=== PATIENT | male | born 1960 | race Caucasian/White ===

== ENCOUNTER 2024-11-30 11:59 | Outpatient (REF) | payer OTHER, SELFPAY ==
--- OUTSIDE RECORDS SUMMARY | 2024-01-02 09:50 | XMS_ITS ---
Author Name [facility] Organization [facility] Address [address] [place] [address] Care Team Providers Care Laborer Wood Preserving Plant Name Role Phone ORYL FELIX Primary Care Provider Unavailabl e Insurance Providers: All historical and current Section Date Range: From patient's date of to the date document was created. This section includes the names of all active insurance providers for the patient. Insurance Provider Type of Coverage Plan Name Start of Policy Coverage End of Policy Coverage Group Number Member ID Insurance Provider's Telephone Number Policy [employer]'s Name Patient's Relationship to Policy [employer] MEDICARE (WNR) MEDICARE (M) PART B Feb 29, 2024 PART B [id number] JAZLYN RENDON PATIENT Selected Encounter This section includes the information on record at [place] for the Encounter. Date/Time Encounter Type Encounter Description Reason Provider Source Jan 02, 2024 01:50 PM QNHP OL DIG ASSMT&MGMT 5-10 PULMONARY/CHEST ICD-10-CM Z12.2 Encntr screen for malignant neoplasm of respiratory organs [facility] Encounter Template Text not used by [place] Assessments - Encounter Diagnoses This section includes the primary and secondary diagnoses documented for the Encounter. Date/Time Primary/Secondary Diagnosis Diagnosis Name Provider Source Jan 02, 2024 01:58 PM PRIMARY Encntr screen for malignant neoplasm of respiratory organs [facility] Plan of Treatment: Future Appointments (+ 6 months) and Future Tests (+/- 45 days) The Plan of Treatment section includes future care activities for the [facility] [place] [facility] This section includes future appointments and future orders which are active, pending or scheduled. Future Appointments This section includes appointments that were scheduled to occur 6 months from the date of the Encounter, up to a maximum of 20 appointments. The data comes from all [facility] facilities. Appointment Date/Time Appointment Type Appointme nt Facility Name Feb 09, 2024 11:30 AM AMBULATORY - MEDICINE [facility] May 13, 2024 01:00 PM AMBULATORY - MEDICINE [facility] May 18, 2024 11:30 AM [facility]ORY - MEDICINE [facility] May 26, 2024 01:30 PM AMBULATORY - NONE [facility] Radiology Reports: +/- 30 days of the encounter Radiology Reports For cases when an order for radiology services may have been completed prior to the date of the Encounter, the report list includes the Radiology Reports that were completed up to 30 days before dateof the Encounter. For cases when an order for radiology services may have been completed after the date of the Encounter, the report list also includes the Radiology Reports that were completed up to30 days after date of the Encounter. The data comes from all [facility]. Date/Time Radiology Report Provider Source Jan 02, 2024 11:17 AM LDCT LUNG CANCER SCREENING: JAZLYN ALSTON [id number] -1960 Ex Date: JAN 02, 2024@11:17 Req Phys: ART GUTHRIE Loc: ZZCWM/NO/LCS ADMIN (Req'g Loc) Img Loc: NHM/CT Service: Unknown [facility] JIMI LUIS [id number] (Case [id number] COMPLETE) LDCT LUNG CANCER SCREENING (CT Detailed) CPT:32369 Reason for Study: LUNG CANCER SCREENING Clinical History: 80 TPY-Currently smoking Baseline LCS LDCT on 12/25/2022: LR 2 Index Nodule: 3 mm solid well-circumscribed left upper lobe solid pulmonary nodule, 8-80. Report Status: Verified Date Reported: JAN 02, 2024 Date Verified: JAN 02, 2024 Sap Bpc Developer E-Sig:/ES/LY No JEFF JR Report: Study: Lung cancer screening CT of the chest. Provided History: Lung cancer screening. Comparison: CT scan of the chest from December 25, 2022. Technique: 1 mm lung algorithm and 3 mm soft tissue algorithm axial reconstructions from the lung apices through the lung bases without the administration of intravenous contrast as per standard department protocol for lung cancer screening. Subsequently, sagittal and coronal reformats were generated. MIP images also provided and reviewed. Secondary computer-aided detection with post-processing from [employer] is used. The lack of intravenous contrast inherently limits the evaluation of hilar structures, vascular structures, and abnormal enhancement patterns. Lower than standard dose was utilized limiting sensitivity for fine parenchymal detail. Dose Parameters: CTDI(vol): 2.9 mGy. DLP: 98.8 mGy*cm. Findings: Lungs: Emphysema: Minimal centrilobular emphysematous changes with associated scattered parenchymal scarring is unchanged with minimal apical parenchymal nodular scarring on the left unchanged. Index Nodule: Stable 2.9 mm solid well-circumscribed left upper lobe solid pulmonary nodule, 8-78. Other Nodules: None. Lungs/airway findings: Mild dependent changes at the lung bases. No acute pulmonary process or pleural effusion is identified. The tracheobronchial tree is patent and normal. Multiple scattered bilateral punctate calcified granulomata are again seen. Heart, mediastinum and lymph nodes: The heart size is normal. No pericardial effusion identified. Normal caliber thoracic aorta. No mediastinal or hilar lymphadenopathy by size criteria. No axillary lymphadenopathy by size criteria. Normal caliber thoracic aorta. Normal caliber pulmonary arteries. Visualized coronary artery calcifications: Atherosclerotic changes of the aorta and coronary arteries. Upper abdomen: Hepatomegaly with hepatic steatosis to the visualized liver. Otherwise unremarkable. Bones and soft tissues: Normal age-related degenerative changes present. No acute bony abnormality identified. Single old healed left rib fracture. Other findings: None. Impression: No significant interval change or new abnormality, as described above. Lung-RADS Assessment: Category 2, benign appearance or behavior. Recommendation: Continue annual screening with lung cancer screening CT in 12 months. Other Significant Findings and Recommendations: None. Primary Diagnostic Code: No immediate attention required Secondary Diagnostic Codes: LUNGRADS 2: BENIGN APPEARANCE OR BEHAVIOR Primary Interpreting Staff: LY JEFF JR, Radiologist (Sap Bpc Developer) /LY VAIL JR [facility] Encounter Notes: All associated encounter notes This section contains the clinical notes associated to the Encounter. Date/Time Encounter Note(s) Provider Source Jan 02, 2024 01:58 PM PREVENTIVE MEDICINE RISK ASSESSMENT SCREENING NOTE: LOCAL TITLE: LUNG CANCER SCREENING DOCUMENTATION STANDARD TITLE: PREVENTIVE MEDICINE RISK ASSESSMENT SCREENING NO DATE OF NOTE: JAN 02, 2024@13:58 ENTRY DATE: JAN 02, 2024@13:58:35 AUTHOR: JANNA HAMPTON COSIGNER: URGENCY: STATUS: COMPLETED Dec Dear Mr. Alston: Your recent lung cancer screening CT scan found a small lung nodule. Most nodules are not lung cancer, but a few can grow into lung cancer. As mentioned in the enclosed brochure, nodules are often caused by scar tissue, a healed infection, or some other irritant found in the air we breathe. Nodules are detected in up to half of screening CT scans, but very few nodules porcelain turner to be cancer. In general, more than 95 out of 100 nodules found on lung cancer screening CT scans are not lung cancer. If there are additional findings, we will alert your primary care team. A copy if the results from your Low-Dose CT scan done on 01/02/2024 are enclosed with this letter. Your next lung cancer screening CT scan is due in 12 months, DECEMBER 2024. Our radiology team will reach out to you 3 months prior to when your exam is due to get you scheduled. You may reach our radiology team M-F between the hours of 8am and 4pm at [phone] for scheduling purposes. If you are experiencing an upper respiratory illness like a cold or the flu, please get your scan 4 weeks after your symptoms have gone away. Lung cancer screening can detect lung cancer, but it does not prevent it. Rarely, a CT scan can miss a small lung cancer. Contact your primary care provider if you develop new symptoms like worsening shortness of breath, change in a cough, or coughing up blood. If you still smoke cigarettes, we can help you quit. We understand that quitting cigarette smoking is difficult, but it is the best way to improve your health. When you want help, let your primary care provider know. You can also call 4-657-XEUE-VET ( ) or visit [employer]. Please contact us with questions or concerns about lung cancer screening. Sincerely, Janna BURT, RN, OCN Lung Cancer Screening Nurse Enclosures: brochure entitled, Small Lung Nodules: What You Need to Know /alesia/ JANNA BURT,RN,OCN LUNG CANCER SCREENING NURSE NAVIGATOR Signed: 01/02/2024 14:00 JANNA HAMPTON [facility] [place] [facility] Jan 02, 2024 01:50 PM PREVENTIVE MEDICINE RISK ASSESSMENT SCREENING NOTE: LOCAL TITLE: LUNG CANCER SCREENING DOCUMENTATION STANDARD TITLE: PREVENTIVE MEDICINE RISK ASSESSMENT SCREENING NO DATE OF NOTE: JAN 02, 2024@13:50 ENTRY DATE: JAN 02, 2024@13:50:38 AUTHOR: JANNA HAMPTON EXP COSIGNER: URGENCY: STATUS: COMPLETED NO LUNG NODULES or TRACKING OF NODULE NOT INDICATED per guidelines (e.g., clearly benign/some small nodules). Date of image: Date: January 02, 2024 LDCT Scan Results: Most recent LDCT scan shows a nodule for which tracking is not indicated per guidelines or radiology report. Comment: Lung Rads 2 Index Nodule: Stable 2.9 mm solid well-circumscribed left upper lobe solid pulmonary nodule, 8-78. Other Nodules: None. Incidental Findings: The following *INCIDENTAL FINDINGS* were noted: Emphysema: Minimal centrilobular emphysematous changes with associated scattered parenchymal scarring is unchanged with minimal apical parenchymal nodular scarring on the left unchanged. Visualized coronary artery calcifications: Atherosclerotic changes of the aorta and coronary arteries. Upper abdomen: Hepatomegaly with hepatic steatosis to the visualized liver. Otherwise unremarkable. I am notifying the Primary Care Provider for information, and for follow-up of incidental findings, if indicated. Comment: Jazlyn Lieberman NP and PACT team via second signer in CPRS Plan: Continue routine annual lung cancer screening. Patient Notification of results: Results letter sent to patient. Comment: Results letter and educational materials mailed to address on file. Patient contacted by telephone. Comment: Call placed to the . Non-urgent voicemail left. Direct call back number for LCS Coordinator provided. /alesia/ JANNA ZAMORAN,RN,OCN LUNG CANCER SCREENING NURSE NAVIGATOR Signed: 01/02/2024 13:58 Receipt Acknowledged By: 01/06/2024 19:03 /alesia/ JAZLYN LIEBERMAN NP NURSE PRACTITIONER 01/05/2024 10:18 /alesia/ BONNIE SILVA, CR REGISTERED NURSE JANNA HAMPTON PR [facility]
--- OUTSIDE RECORDS SUMMARY | 2024-05-18 07:30 | XMS_ITS | Encounter Summary ---
Author Name [facility] Organization [facility] [place] Address [address] [place] [address] Care Team Providers Care Scenic Designer Name Role Phone ORLY FELIX Primary Care Provider Unavailabl e Insurance [...] PART B Feb 29, 2024 PART B [id number] JAZLYN RENDON PATIENT Selected Encounter This section includes the information on record at [place] for the Encounter. Date/Time Encounter Type Encounter Description Reason Provider Source May 18, 2024 11:30 AM OFFICE O/P EST MOD 30 MIN PRIMARY CARE/MEDICINE ICD-10-CM C61 Malignant neoplasm of prostate JAZLYN MCCLOUD [place] Encounter Template Text not used by [place] Assessments - Encounter Diagnoses This section includes the primary and secondary diagnoses documented for the Encounter. Date/Time Primary/Secondary Diagnosis Diagnosis Name Provider Source May 18, 2024 04:58 PM PRIMARY Malignant neoplasm of prostate JAZLYN MCCLOUD [place] May 18, 2024 04:58 PM SECONDARY Chronic atrial fibrillation, unspecified JAZLYN MCCLOUD May 18, 2024 04:58 PM SECONDARY Dorsalgia, unspecified ROGERSJAZLYNELENA [place] May 18, 2024 04:58 PM SECONDARY Elevated prostate specific antigen [PSA] JAZLYN MCCLOUD [place] May 18, 2024 04:58 PM SECONDARY Hyperlipidemia, unspecified ROGERSJAZLYN No [place] May 18, 2024 04:58 PM SECONDARY Nicotine dependence, cigarettes, uncomplicated JAZLYN MCCLOUD [place] Plan of Treatment: Future Appointments (+ 6 months) and Future Tests (+/- 45 days) The Plan of Treatment section includes future care activities for the patient from all [place] treatmentfacilities. This section includes future appointments and future orders which are active, pending or scheduled. Future Appointments This section includes appointments that were scheduled to occur 6 months from the date of the Encounter, up to a maximum of 20 appointments. The data comes from all [place] treatment facilities. Appointment Date/Time Appointment Type Appointme nt Facility Name May 26, 2024 01:30 PM AMBULATORY - NONE [place] [facility] [place] [facility] Active, Pending, and Scheduled Orders This section includes a listing of several types of active, pending, and scheduled orders, including clinic medications orders, diagnostic test orders, procedure orders and consult orders; where the start date of the order is 45 days before the date of the Encounter or 45 days after the date of theEncounter. The data comes from all [place] treatment facilities. Test Date/Time Test Type Test Details Facility Name May 18, 2024 12:00 AM Laboratory - Chemi stry Order CBC BLOOD (LAV-BLOOD) [facility] May 18, 2024 12:00 AM Laboratory - Chemi stry Order LIVER FUNCTION BLOOD (SST-SERUM) [facility] May 18, 2024 12:00 AM Laboratory - Chemi stry Order BASIC METABOLIC PANEL (non-fasting) BLOOD (SST-SERUM) [facility] May 18, 2024 12:00 AM Laboratory - Chemi stry Order LIPID PANEL, NON FASTING BLOOD (SST-SERUM) [facility] May 18, 2024 12:00 AM Laboratory - Chemi stry Order HEMOGLOBIN A1C PANEL BLOOD (LAV-BLOOD) [facility] May 18, 2024 12:00 AM Laboratory - Chemi stry Order VITAMIN D (25-[place]) BLOOD (SST-SERUM) [facility] May 18, 2024 12:00 AM Laboratory - Chemi stry Order MICROALBUMIN CREATININE RATIO PANEL URINE (RANDOM) [facility] 18, 2025 12:00 AM Laboratory - Chemi stry Order PSA BLOOD (SST-SERUM) [facility] Vital Signs: All taken on the encounter date This section contains inpatient and outpatient Vital Signs collected on the date of the Encounter. Date/Time Temperature Pulse Blood Pressure Respiratory Rate SP02 Pain Height Weight Body Mass Index Source May 18, 2024 11:34 AM 96.8 88 113/73 95 220 35 [facility] Social History: Smoking Status (Most current) and Tobacco Use (All prior to encounter date) This section includes the most current, and the historical, smoking and tobacco- related health factors from the [place] facility where the Encounter took place. Current Smoking Status This section includes the most current smoking, or tobacco-related health factor, from the [place] facility where the Encounter took place. Date/Time Current Smoking Status Comment Facil [facility] May 18, 2024 11:30 AM VA-TOBACCO USE EVERY DAY CIGARET JORDYN [place] Tobacco Use History This section includes a history of the smoking, or tobacco-related health factors, that were collected on or before the date of the Encounter. The data comes from the [place] facility where the Encounter took place. Date/Time Smoking Status/Tobacco Use Comment F acility May 18, 2024 11:30 AM VA-TOBACCO SCREEN FOLLOW-UP [place] May 18, 2024 11:30 AM VA-TOBACCO USE ADVICE [place] May 18, 2024 11:30 AM VA-TOBACCO USE STUDENT MINISTRY PASTOR NO [facility] 18, 2025 11:30 AM VA-TOBACCO USE ANA RY DAY CIGARETTES [place] May 18, 2024 11:30 AM VA-TOBACCO USE MED NO [place] Oct 30, 2022 02:00 PM VA-TOBACCO USE 30 YEARS OR MORE [place] Oct 30, 2022 02:00 PM VA-TOBACCO USE ADVICE [place] Oct 30, 2022 02:00 PM VA-TOBACCO USE STUDENT MINISTRY PASTOR YES [place] Oct 30, 2022 02:00 PM VA-TOBACCO USE MED NO [place] Oct 30, 2022 02:00 PM VA-TOBACCO USE WI 30 MIN OF WAKEUP [place] Oct 30, 2022 02:00 PM VA-TOBACCO USER EVERY DAY [place] Mar 21, 2017 03:04 PM CURRENT SMOKER 2 packs daily [place] Mar 21, 2017 03:04 PM V1-PT DECLINES REF TO TOBACCO CESS [facility] Mar 21, 2017 03:04 PM V1-PT READY TO SIMONE T TOBACCO USE [place] Jun 28, 2016 11:02 AM CURRENT SMOKER [facility] Jun 28, 2016 11:02 AM V1-PT DECLINES REF TO TOBACCO CESS [facility] Jun 28, 2016 11:02 AM V1-PT DECLINES TOB ACCO CESSATION [facility] Jun 28, 2016 11:02 AM V1-PT THINKING ABO UT QUIT TOBACCO USE [place] Dec 28, 2014 09:38 AM CURRENT SMOKER [facility] Jun 21, 2013 03:36 PM CURRENT SMOKER smokes one ppd of cigaretts [place] Mar 30, 2012 10:55 AM V1-PT THINKING ABO UT QUIT TOBACCO USE [place] Oct 04, 2011 02:20 PM CURRENT SMOKER Pt smokes a pack and a half a day. [place] Oct 04, 2011 02:20 PM V1-PT DECLINES REF TO TOBACCO CESS [facility] Oct 04, 2011 02:20 PM V1-PT DECLINES TOB ACCO CESSATION [facility] Oct 04, 2011 02:20 PM V1-PT THINKING ABO UT QUIT TOBACCO USE [place] Radiology Reports: +/- 30 days of the [...] the Encounter. The data comes from all [place] treatment facilities. 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 19 images were received by the [place] National Teleradiology Program (NTP) for interpretation. FINDINGS: Proximal Abdominal Aorta (AP x transverse): 2.4 x 2.6 cm Mid Abdominal Aorta (AP x transverse): 2.1 x 2.6 cm Distal Abdominal Aorta (AP x transverse): 2.3 x 2.2 cm Right Common Iliac Artery (AP x transverse): 1.2 x 1.2 cm Left Common Iliac Artery (AP x transverse): 1.3 x 1.3 cm Impression: No sonographic evidence of abdominal aortic aneurysm. READING PHYSICIAN: Kike Hannah MD -[phone] 05/26/2024 14:01 JOB PLACEMENT OFFICER [facility] National Teleradiology Program [phone] (For Medical Practitioner Use Only) Attention Patients / Veterans: If you have questions or concerns about these test results, please contact your ordering provider or primary care team. Primary Diagnostic Code: NO ALERT REQUIRED Secondary Diagnostic Codes: ABDOMINAL AORTIC ANEURYSM NOT PRESENT Primary Interpreting Staff: RADIOLOGY,OUTSIDE SERVICE, Staff Physician / RADIOLOGY,OUTSIDE SERVICE [facility] Encounter Notes: All associated encounter notes This section contains the clinical notes associated to the Encounter. Date/Time Encounter Note(s) Provider Source May 18, 2024 04:58 PM ADDENDUM: LOCAL TITLE: Addendum STANDARD TITLE: ADDENDUM DATE OF NOTE: MAY 18, 2024@16:58:25 ENTRY DATE: MAY 18, 2024@16:58:26 AUTHOR: JAZLYN MCCLOUD EXP COSIGNER: URGENCY: STATUS: COMPLETED Team: Please request office visit note and any recent studies from the office of Dr. Melendez at [facility] cardiology. Thank you /alesia/ JAZLYN MCCLOUD NP NURSE PRACTITIONER Signed: 05/18/2024 16:59 Receipt Acknowledged By: 05/19/2024 10:58 /alesia/ [employer] SECRETARY 05/19/2024 11:09 /alesia/ KHURRAM BAIRD LPN BUNCH TRIMMER MOLD --- Original Document --- 05/18/24 NURSE PRACTITIONER OUTPATIENT NOTE: PRIMARY CARE VISIT JAZLYN Mcnair MINAL, is a 64 yo WHITE MALE Adah who presents at the [place] [facility]. TYPE OF VISIT: Face to face 64-year-old with HLD, chronic atrial fibrillation on DOAC, chronic back pain, recently diagnosed prostate cancer, nicotine dependence presented to the outpatient clinic in regular follow-up. He followed up with urology 04/08/2024 and reviewed biopsy showing grade 1 prostate CA. Plan is for MRI and PSA surveillance. He was started on finasteride 5 mg daily. Colonoscopy November 2023 showed diverticulosis and internal hemorrhoids. Also noted 3 polyps. Biopsy showed tubular adenoma x 2 with 1 hyperplastic polyp. Recommend repeat in 5 years (2028). Today he complains of worsening tinnitus. Requesting referral to audiology. Recent labs and diagnostic studies were reviewed with the . All medications were reconciled during this visit. HEALTHCARE PROVIDERS: PCP: [place] Cardiology: Dr. Melendez, [facility] Urology: Dr. Torres Audiology: [place] Social Hx: The Adah lives with his . He has smoked 1 pack/day for 30 years. He quit last year for about 8 months but resumed a few months ago. Drinks alcohol occasionally. No MJ or illicit substances. 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 No regular exercise but plans to join the gym soon given recent diagnosis of prostate cancer. HISTORY: PERIOD OF SERVICE - [employer] FROM Mar TO Nov COMBAT SERVICE INDICATED: No MEDICAL HISTORY Active Problem Back pain M54.9 06/19/2023 JIM MARX Impaired Fasting Glucose (SCT 29637 06/19/2023 JIM MARX Elevated PSA R97.20 06/19/2023 JIM MARX Lung Cancer Screening R69. 06/19/2023 JIM MARX Admits alcohol use Z72.89 06/19/2023 JIM MARX Long-term current use of anticoagul 06/19/2023 JIM MARX Lung Cancer Screening R69. 05/15/2023 JIM MARX Echocardiogram abnormal R93.1 05/15/2023 JIM MARX Hyperlipidemia (SCT [id number]) E78.5 05/15/2023 JIM MARX Atrial Fibrillation and Flutter ([place] 10/30/2022 RACHAEL YANG Closed fracture right humerus R69. 06/28/2016 MONISHA KAY Screening for malignant neoplasm of 10/30/2022 RACHAEL YANG Knee pain (SNOMED CT [id number]) 719. 02/02/2015 0 Tobacco use Z72.0 06/28/2016 MONISHA KAY VITAL SIGNS: Temperature 97 F [36.1 C] (06/19/2023 12:59) Blood Pressure 121/82 (06/19/2023 12:59) Pulse 87 (06/19/2023 12:59) Respiration 17 (06/19/2023 12:59) Pain 0 (06/19/2023 12:59) BMI BMI: 33.3 Weight 212 lb [96.16 kg] (06/19/2023 12:59) Pulse Oximetry 95% (06/19/2023 12:59) ASSISTIVE DEVICES: None REVIEW OF SYSTEMS: CONSTITUTIONAL: No fevers, chills, weight loss/gain ENT: No sore throat, sneezing, congestion, rhinorrhea, anosmia, or ageusia. CARDIOVASCULAR: No chest pain, palpitations, or increased pedal edema RESPIRATORY: No SOB, cough, sputum, wheeze. GASTROINTESTINAL: Denies abd pain, N/V/D. No melena or hematochezia. No tenesmus or constipation. GENITOURINARY: No burning micturition. No urinary frequency or urgency. No nocturia. MUSCULOSKELETAL: No myalgias or arthralgias. PSYCHIATRIC: No new anxiety or depression. No sleep disturbance. NEUROLOGIC: No headaches, dizziness, numbness or tingling in the extremities, or unilateral weakness. EXAMINATION General: Well-appearing in no obvious distress. Mental Status: Alert and oriented x4. Head: Normocephalic. Eyes: PERRLA. EOMI. Anicteric sclerae. ENT: Moist oral mucosa. Neck: Supple. No thyromegaly or LAD. No bruit. Lungs: CTA. Normal chest excursion. Eupneic respirations. CV: Heart tones S1, S2. RRR. No M/G/R. No peripheral edema GI: Abdomen is soft and nontender. No HSM or mass. : No CVA tenderness. Ext: No cyanosis or clubbing. No gross deformities. Neuro: CN II through XII grossly intact. Normal speech. Normal gait. Integument: Skin warm and dry. No concerning lesions or rashes. Psych: Normal mood and affect. Normal judgment. ALLERGIES: ========= Patient has answered NKA >> HEALTH MAINTENANCE PREVENTIVE MEDICINE GOALS Advance Directive Screen MH AD May 02 Suicide Screen Oct 30 BMI>30/>24.99 High Risk Oct 30 Homelessness/Food Insecurity Screen Oct 30 Depression Screening Oct 30 Pneumococcal PPSV23 (Pneumovax) DUE NOW Tobacco Use Screening Oct 30 Screen for Abd Aortic Aneurysm DUE NOW Influenza Immunization DUE NOW Medication Reconciliation DUE NOW Td / Tdap Immunization Oct 03 Alcohol Use Screen (AUDIT-C) Oct 30 COVID-19 Immunization DUE NOW Herpes Zoster (Shingles) Vaccine Jul 09 Sexual Orientation Oct 30 RHS Screen May 15 Eye Care At-Risk Screen DUE NOW (Optional) Whole Health Documentation DUE NOW ASSESSMENT/PLAN: Active problems - Computerized Problem List is the source for the following: Elevated PSA: Prostate cancer: Recently diagnosed 04/08/2024. He is following with Dr. Raul Redd at [place] [facility]. MRI is planned but not yet scheduled. Back pain: Chronic back pain for which he uses OTC NSAIDs for symptomatic relief. Hyperlipidemia ([facility] [id number]): Continue rosuvastatin. Discussed heart healthy diet including reduction of animal fats and increased exercise as reynoso components of overall CV health. He voiced understanding. Check lipid panel prior to next visit. Atrial Fibrillation and Flutter ([facility] [id number]): Maintained on carvedilol for ventricular rate control and apixaban for primary risk reduction. Following with [facility] cardiology, Dr. Melendez. No palpitations, exertional dyspnea, or other anginal equivalent symptoms. Nicotine dependence: He smoked 1/2 to 1 pack/day x 30 years. He stopped last year for about 8 months. I spent between 3 and 10 minutes discussing the risks of tobacco use and many benefits of tobacco cessation, including educating patient on the risk/benefits of Medically Assisted Therapies. Patient verbalized understanding of the above. FOLLOW UP: RTC Below & sooner PRN UPCOMING APPOINTMENTS: No data available 35 minutes spent in patient evaluation, data review, and patient education. All medications were reconciled during this visit. No barriers; Patient understands and agrees to current treatment plan. If pt has any questions, concerns, or changes in current health status he/she will call or come in to the [facility]. Screen for Abd Aortic Aneurysm: Order Ultrasound Medication Reconciliation: Outpatient: Has the patient been taking medications as documented in the EMLR? YES: The patient has been taking medications as documented in the EMLR. Essential Medication List for Review used to complete this medication reconciliation. INCLUDED IN THIS LIST: Alphabetical list of active outpatient prescriptions dispensed from this [facility] (local) and dispensed from another [place] or [facility]D facility (remote) as well as inpatient orders (local, pending and active), local clinic medications, locally documented non-VA medications, and local prescriptions that have or been discontinued in the past 90 days. - All changes in medications, including all non-VA/Herbal/OTC medications were entered into CPRS. - If there were any medications the patient should no longer take, they were discontinued. - The patient/caregiver was instructed to update this list, discard old lists, and take this list to the next appointment, whether with a VA or non-VA provider. Tobacco Use Follow-Up: Patient was advised to stop smoking and/or using other tobacco products. Advised patient that a combination of behavioral counseling and FDA-approved cessation medications is the most effective way to ensure their success in stopping to smoke and/or using other tobacco products. The patient was not interested in additional information about behavioral counseling and other support strategies discussed. Informed patient that medications can help with cravings and withdrawal symptoms, and they greatly increase the chances of successfully stopping your tobacco use. The patient was not interested in a prescription for tobacco cessation medications. /alesia/ JAZLYN MCCLOUD NP NURSE PRACTITIONER Signed: 05/18/2024 16:57 05/19/2024 ADDENDUM STATUS: COMPLETED THIS AUTO POLISHER SENT FAX REQUEST FOR RECORDS FROM [facility] [phone] /alesia/ [employer] SECRETARY Signed: 05/19/2024 10:57 JAZLYN MCCLOUD May 18, 2024 11:35 AM PREVENTIVE MEDICIN E NURSING NOTE: LOCAL TITLE: CLINICAL REMINDERS/NURSING STANDARD TITLE: PREVENTIVE MEDICINE NURSING NOTE DATE OF NOTE: MAY 18, 2024@11:35 ENTRY DATE: MAY 18, 2024@11:35:29 AUTHOR: ALEXEY NOONAN COSIGNER: URGENCY: STATUS: COMPLETED Advance Directive Screen MH AD: Patient does not have a completed advance directive on file at any facility, VA or outside. S/he is not interested in completing one at this time. The patient received education about Advance Directives and written notification of his/her rights. Suicide Screen: C-SSRS Screening [place] Suicide Severity Rating Scale (C-SSRS) screener 1. Over the past month, have you wished you were or wished you could go to sleep and not wake up? No 2. Over the past month, have you had any actual thoughts of killing yourself? No 3. Over the past month, have you been thinking about how you might do this? Response not required due to responses to other questions. 4. Over the past month, have you had these thoughts and had some intention of acting on them? Response not required due to responses to other questions. 5. Over the past month, have you started to work out or worked out the details of how to kill yourself? Response not required due to responses to other questions. 6. If yes, at any time in the past month did you intend to carry out this plan? Response not required due to responses to other questions. 7. In your lifetime, have you ever done anything, started to do anything, or prepared to do anything to end your life (for example, collected pills, obtained a gun, gave away valuables, went to the roof but didn't jump)? No 8. If YES, was this within the past 3 months? Response not required due to responses to other questions. BMI>30/>24.99 High Risk: Patient declines to discuss weight management. Patient declined weight discussion. Discussed revisiting at a future visit. Homelessness/Food Insecurity Screen: In the past 2 months, have you been living in stable housing that you own, rent, or stay in as part of a household? Yes - Living in stable housing. Are you worried or concerned that in the next 2 months you may NOT have stable housing that you own, rent, or stay in as part of a household? No - Not worried about housing near future The reports the following: Within the past 12 months, you worried whether your food would run out before you got money to buy more. Never true Within the past 12 months, the food you bought just didn't last and you didn't have money to get more. Never true Depression Screening: Perform PHQ-2 A PHQ-2 screen was performed. The score was 0 which is a negative screen for depression. Over the past two weeks, how often have you been bothered by the following problems? 1. Little interest or pleasure in doing things Not at all 2. Feeling down, depressed, or hopeless Not at all Pneumococcal PPSV23 (Pneumovax): The patient may have been vaccinated in the past but written documentation of vaccination is not available today. Patient instructed to obtain a written record of the prior vaccine and bring it to the next appointment. Tobacco Use Screening: The patient smokes cigarettes every day. The patient has never used other types of tobacco. Influenza Immunization: The patient has received the seasonal influenza vaccine for the current season at another location. Documented: INFLUENZA, UNSPECIFIED FORMULATION Historical Date Administered: Dec 2023 Exact date unknown Information Source: FROM PATIENT'S RECALL Td / Tdap Immunization: Prior Td vaccination The patient may have been vaccinated in the past but written documentation of vaccination is not available today. Patient instructed to obtain a written record of the prior vaccine and bring it to the next appointment. Alcohol Use Screen (AUDIT-C): Alcohol Screen: SCREEN FOR ALCOHOL (AUDIT-C) An alcohol screening test (AUDIT-C) was negative (score=3). 1. How often did you have a drink containing alcohol in the past year? Consider a drink to be a 12 ounce can or bottle of regular beer, 8 ounces of malt liquor, a 5 ounce glass of table wine, or a 1.5 ounce shot of liquor (like scotch, gin, or vodka). Monthly or less 2. How many drinks containing alcohol did you have on a typical day when you were drinking in the past year? One or two drinks 3. How often did you have six or more drinks on one occasion in the past year? Monthly COVID-19 Immunization: Refused Moderna Monovalent COVID-19 vaccine Immunization: COVID-19 (MODERNA), MRNA, LNP-S, PF, 50 MCG/0.5 ML (AGES 12+ YEARS) Refusal Reason: PATIENT DECISION Patient refuses all immunization(s) in the COVID-19 group Date Documented: 05/18/24 11:37 Herpes Zoster (Shingles) Vaccine: Prior Herpes Zoster vaccination The patient has been vaccinated in the past but written documentation of vaccination is not available today. Patient instructed to obtain a written record of the prior vaccine and bring it to the next appointment. Sexual Orientation: The patient thinks of their sexual orientation as: Straight or Heterosexual RHS Screen: RHS Screen Environmental Check Upon inquiry, the individual reports that the environment is safe to proceed. Informed Consent to Screen and Document The individual consents to proceed with screening. The individual consents to documentation of responses. PRIMARY SCREEN: In the past 12 months, how often did a current or former intimate partner (e.g., boyfriend, girlfriend, , , sexual partner): 1. Scream or curse at you Never 2. Insult or talk down to you Never 3. Threaten you with harm Never 4. Physically hurt you Never 5. Force or pressure you to have sexual contact against your will, or when you were unable to say no Never The HITS tool (items 1-4 above) is [place] copyright protected by Sammy Wallace MD, and the user has full rights to use it throughout the [place] system. PRIMARY SCREEN RESULT: The Primary Screen is NEGATIVE. The individual answered never to all forms of IPV above (i.e., answered never to all 5 items) The individual accepts education and/or resources: No EDUCATION: The individual indicated readiness to learn. Education offered during this session as noted above. The individual indicated understanding by asking relevant questions and making appropriate comments. No barriers to learning were observed or identified. Eye Care At-Risk Screen : Patient identified to be at risk for the following eye condition(s): MACULAR DEGENERATION: Macular Degeneration Risk Factors Information: Reminder Term: VA-AMD RISK FACTORS Encounter Diagnosis: 06/19/2023@13:00 Z72.0 (ICD-10-CM) Tobacco use rank: SECONDARY Prov. Narr. - Tobacco use ([facility] [id number]) Action: No Referral Ordered: Eye exam completed elsewhere by an [facility] or Embedded Developer Exam Information: Date: 2024 ? Exact date is unknown Findings/Comment VET F/U AT [facility] dont remember the dr name Location: Outside Healthcare Provider // ALEXEY NOONAN LPN Licensed Practical Nurse Signed: 05/18/2024 11:38 ALEXEY NOONAN [place] May 18, 2024 11:31 AM PRIMARY CARE NURSE PRACTITIONER OUTPATIENT NOTE: LOCAL TITLE: NURSE PRACTITIONER OUTPATIENT NOTE STANDARD TITLE: PRIMARY CARE NURSE PRACTITIONER OUTPATIENT NOTE DATE OF NOTE: MAY 18, 2024@11:31 ENTRY DATE: MAY 18, 2024@11:32 AUTHOR: JAZLYN MCCLOUD COSIGNER: URGENCY: STATUS: COMPLETED NURSE PRACTITIONER OUTPATIENT NOTE Has ADDENDA PRIMARY CARE VISIT JAZLYN COSTELLORustam, is a 64 yo WHITE MALE Adah who presents at the [place] [facility]. TYPE OF VISIT: Face to face 64-year-old Adah with HLD, chronic atrial fibrillation on DOAC, chronic back pain, recently diagnosed prostate cancer, nicotine dependence presented to the outpatient clinic in regular follow-up. He followed up with urology 04/08/2024 and reviewed biopsy showing grade 1 prostate CA. Plan is for MRI and PSA surveillance. He was started on finasteride 5 mg daily. Colonoscopy November 2023 showed diverticulosis and internal hemorrhoids. Also noted 3 polyps. Biopsy showed tubular adenoma x 2 with 1 hyperplastic polyp. Recommend repeat in 5 years (2028). Today he complains of worsening tinnitus. Requesting referral to audiology. Recent labs and diagnostic studies were reviewed with the . All medications were reconciled during this visit. HEALTHCARE PROVIDERS: PCP: [place] Cardiology: Dr. Melendez, [facility] Urology: Dr. Torres Audiology: [place] Social Hx: The lives with his . He has smoked 1 pack/day for 30 years. He quit last year for about 8 months but resumed a few months ago. Drinks alcohol occasionally. No MJ or illicit substances. 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 No regular exercise but plans to join the gym soon given recent diagnosis of prostate cancer. HISTORY: PERIOD OF SERVICE - [employer] FROM Mar TO Nov COMBAT SERVICE INDICATED: No MEDICAL HISTORY Active Problem Back pain M54.9 06/19/2023 JIM MARX Impaired Fasting Glucose (SCT 04585 06/19/2023 JIM MARX Elevated PSA R97.20 06/19/2023 JIM MARX Lung Cancer Screening R69. 06/19/2023 JIM MARX Admits alcohol use Z72.89 06/19/2023 JIM MARX Long-term current use of anticoagul 06/19/2023 JIM MARX Lung Cancer Screening R69. 05/15/2023 JIM MARX Echocardiogram abnormal R93.1 05/15/2023 JIM MARX Hyperlipidemia ([facility] 92571499) E78.5 05/15/2023 JIM MARX Atrial Fibrillation and Flutter ([place] 10/30/2022 RACHAEL YANG Closed fracture right humerus R69. 06/28/2016 MONISHA KAY Screening for malignant neoplasm of 10/30/2022 RACHAEL YANG Knee pain (SNOMED CT 68320547) 719. 02/02/2015 0 Tobacco use Z72.0 06/28/2016 MONISHA KAY VITAL SIGNS: Temperature 97 F [36.1 C] (06/19/2023 12:59) Blood Pressure 121/82 (06/19/2023 12:59) Pulse 87 (06/19/2023 12:59) Respiration 17 (06/19/2023 12:59) Pain 0 (06/19/2023 12:59) BMI BMI: 33.3 Weight 212 lb [96.16 kg] (06/19/2023 12:59) Pulse Oximetry 95% (06/19/2023 12:59) ASSISTIVE DEVICES: None REVIEW OF SYSTEMS: CONSTITUTIONAL: No fevers, chills, weight loss/gain ENT: No sore throat, sneezing, congestion, rhinorrhea, anosmia, or ageusia. CARDIOVASCULAR: No chest pain, palpitations, or increased pedal edema RESPIRATORY: No SOB, cough, sputum, wheeze. GASTROINTESTINAL: Denies abd pain, N/V/D. No melena or hematochezia. No tenesmus or constipation. GENITOURINARY: No burning micturition. No urinary frequency or urgency. No nocturia. MUSCULOSKELETAL: No myalgias or arthralgias. PSYCHIATRIC: No new anxiety or depression. No sleep disturbance. NEUROLOGIC: No headaches, dizziness, numbness or tingling in the extremities, or unilateral weakness. EXAMINATION General: Well-appearing Adah in no obvious distress. Mental Status: Alert and oriented x4. Head: Normocephalic. Eyes: PERRLA. EOMI. Anicteric sclerae. ENT: Moist oral mucosa. Neck: Supple. No thyromegaly or LAD. No bruit. Lungs: CTA. Normal chest excursion. Eupneic respirations. CV: Heart tones S1, S2. RRR. No M/G/R. No peripheral edema GI: Abdomen is soft and nontender. No HSM or mass. : No CVA tenderness. Ext: No cyanosis or clubbing. No gross deformities. Neuro: CN II through XII grossly intact. Normal speech. Normal gait. Integument: Skin warm and dry. No concerning lesions or rashes. Psych: Normal mood and affect. Normal judgment. ALLERGIES: ========= Patient has answered NKA >> HEALTH MAINTENANCE PREVENTIVE MEDICINE GOALS Advance Directive Screen MH AD May 02 Suicide Screen Oct 30 BMI>30/>24.99 High Risk Oct 30 Homelessness/Food Insecurity Screen Oct 30 Depression Screening Oct 30 Pneumococcal PPSV23 (Pneumovax) DUE NOW Tobacco Use Screening Oct 30 Screen for Abd Aortic Aneurysm DUE NOW Influenza Immunization DUE NOW Medication Reconciliation DUE NOW Td / Tdap Immunization Oct 03 Alcohol Use Screen (AUDIT-C) Oct 30 COVID-19 Immunization DUE NOW Herpes Zoster (Shingles) Vaccine Jul 09 Sexual Orientation Oct 30 RHS Screen May 15 Eye Care At-Risk Screen DUE NOW (Optional) Whole Health Documentation DUE NOW ASSESSMENT/PLAN: Active problems - Computerized Problem List is the source for the following: Elevated PSA: Prostate cancer: Recently diagnosed 04/08/2024. He is following with Dr. Raul Redd at [place] [facility]. MRI is planned but not yet scheduled. Back pain: Chronic back pain for which he uses OTC NSAIDs for symptomatic relief. Hyperlipidemia ([facility] 51162906): Continue rosuvastatin. Discussed heart healthy diet including reduction of animal fats and increased exercise as reynoso components of overall CV health. He voiced understanding. Check lipid panel prior to next visit. Atrial Fibrillation and Flutter (SCT [id number]): Maintained on carvedilol for ventricular rate control and apixaban for primary risk reduction. Following with [facility] cardiology, Dr. Melendez. No palpitations, exertional dyspnea, or other anginal equivalent symptoms. Nicotine dependence: He smoked 1/2 to 1 pack/day x 30 years. He stopped last year for about 8 months. I spent between 3 and 10 minutes discussing the risks of tobacco use and many benefits of tobacco cessation, including educating patient on the risk/benefits of Medically Assisted Therapies. Patient verbalized understanding of the above. FOLLOW UP: RTC Below & sooner PRN UPCOMING APPOINTMENTS: No data available 35 minutes spent in patient evaluation, data review, and patient education. All medications were reconciled during this visit. No barriers; Patient understands and agrees to current treatment plan. If pt has any questions, concerns, or changes in current health status he/she will call or come [facility] to the [facility]. Screen for Abd Aortic Aneurysm: Order Ultrasound Medication Reconciliation: Outpatient: Has the patient been taking medications as documented in the EMLR? YES: The patient has been taking medications as documented in the EMLR. Essential Medication List for Review used to complete this medication reconciliation. INCLUDED IN THIS LIST: Alphabetical list of active outpatient prescriptions dispensed from this [facility] (local) and dispensed from another [place] or [facility] facility (remote) as well as inpatient orders (local, pending and active), local clinic medications, locally documented non-VA medications, and local prescriptions that have or been discontinued in the past 90 days. - All changes in medications, including all non-VA/Herbal/OTC medications were entered into CPRS. - If there were any medications the patient should no longer take, they were discontinued. - The patient/caregiver was instructed to update this list, discard old lists, and take this list to the next appointment, whether with a VA or non-VA provider. Tobacco Use Follow-Up: Patient was advised to stop smoking and/or using other tobacco products. Advised patient that a combination of behavioral counseling and FDA-approved cessation medications is the most effective way to ensure their success in stopping to smoke and/or using other tobacco products. The patient was not interested in additional information about behavioral counseling and other support strategies discussed. Informed patient that medications can help with cravings and withdrawal symptoms, and they greatly increase the chances of successfully stopping your tobacco use. The patient was not interested in a prescription for tobacco cessation medications. /alesia/ JAZLYN MCCLOUD NP NURSE PRACTITIONER Signed: 05/18/2024 16:57 05/18/2024 ADDENDUM STATUS: COMPLETED Team: Please request office visit note and any recent studies from the office of Dr. Melendez at [facility] cardiology. 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 /alesia/ SHERRY TALBOT REGISTERED NURSE Signed: 05/26/2024 09:11 05/31/2024 ADDENDUM STATUS: COMPLETED No sonographic evidence of AAA on ultrasound 05/26/2024. /alesia/ JAZLYN MCCLOUD NP NURSE PRACTITIONER Signed: 05/31/2024 12:17 JAZLYN MCCLOUD
--- OUTSIDE RECORDS SUMMARY | 2024-06-14 05:39 | XMS_ITS ---
Author Name [facility] [place] Address [address] [place] [address] Care Team Providers Care Director Of Manufacturing Name Role Phone ORLY FELIX Primary Care [...] PART B Feb 29, 2024 PART B [id number] JAZLYN RENDON PATIENT Selected Encounter This section includes the information on record at [place] for the Encounter. Date/Time Encounter Type Encounter Description Reason Provider Source Jun 14, 2024 09:39 AM [facility] OL DIG ASSMT&MGMT 5-10 CLINICAL PHARMACY ICD-10-CM Z04.89 Encounter for examination and observation for oth reasons AMALIA JANE Encounter Template Text not used by [place] Assessments - Encounter Diagnoses This section includes the primary and secondary diagnoses documented for the Encounter. Date/Time Primary/Secondary Diagnosis Diagnosis Name Provider Source Jun 14, 2024 09:45 AM PRIMARY Encounter for examination and observation for oth reasons [facility]ALIA JANE [facility] Plan of Treatment: Future Appointments (+ 6 months) and Future Tests (+/- 45 days) The Plan of Treatment section includes future care activities for the patient from all [place] [facility]. This section includes future appointments and future orders which are active, pending or scheduled. Future Appointments This section includes appointments that were scheduled to occur 6 months from the date of the Encounter, up to a maximum of 20 appointments. The data comes from all [facility]. Appointment Date/Time Appointment Type Appointme nt Facility Name Nov 16, 2024 03:00 PM AMBULATORY - MEDICINE [facility] Dec 08, 2024 01:30 PM AMBULATORY - MEDICINE [facility] Active, Pending, and Scheduled Orders This section includes a listing of several types of active, pending, and scheduled orders, including clinic medications orders, diagnostic test orders, procedure orders and consult orders; where the start date of the order is 45 days before the date of the Encounter or 45 days after the date of theEncounter. The data comes from all [facility]. Test Date/Time Test Type Test Details Facility Name May 18, 2024 12:00 AM Laboratory - Chemi stry Order CBC BLOOD (LAV-BLOOD) [facility] May 18, 2024 12:00 AM Laboratory - Chemi stry Order BASIC METABOLIC PANEL (non-fasting) BLOOD (SST-SERUM) [facility] May 18, 2024 12:00 AM Laboratory - Chemi stry Order LIVER FUNCTION BLOOD (SST-SERUM) [facility] May 18, 2024 12:00 AM Laboratory - Chemi stry Order LIPID PANEL, NON FASTING BLOOD (SST-SERUM) [facility] May 18, 2024 12:00 AM Laboratory - Chemi stry Order HEMOGLOBIN A1C PANEL BLOOD (LAV-BLOOD) [facility] May 18, 2024 12:00 AM Laboratory - Chemi stry Order VITAMIN D (25-[place]) BLOOD (SST-SERUM) [facility] May 18, 2024 12:00 AM Laboratory - Chemi stry Order MICROALBUMIN CREATININE RATIO PANEL URINE (RANDOM) [facility] 18, 2025 12:00 AM Laboratory - Chemi stry Order PSA BLOOD (SST-SERUM) [facility] Radiology Reports: +/- 30 days of [...] the Encounter. The data comes from all [place] treatment facilities. Date/Time Radiology Report Provider Source May 26, 2024 01:22 PM ULTRASOUND AAA SCREENING: MINALJAZLYN [id number] -[id number] M Exm Date: MAY 26, 2024@13:22 Req Phys: JAZLYN MCCLOUD Pat Loc: SPR PACT 1 ASSOCIATE PROFESSOR OF ECONOMICS (Req'g Loc) Img Loc: ULTRASOUND Service: [facility] [place] [address] (Case 230 COMPLETE) ULTRASOUND AAA SCREENING (US Detailed) CPT:85727 Reason for Study: US Abdomen, AAA screen Clinical History: Active smoker x 30 pack years Report Status: Verified Date Reported: MAY 26, 2024 Date Verified: MAY 26, 2024 Cushion Assembler E-Sig: Report: ULTRASOUND AAA SCREENING HISTORY: US Abdomen, AAA screen COMPARISON: None TECHNIQUE: Diameters of the abdominal aorta and common iliac arteries were obtained at the local [place] facility. 19 images were received by the [place] National Teleradiology Program (NTP) for interpretation. FINDINGS: [...] aortic aneurysm. READING PHYSICIAN: Kike Hannah MD -[id number] 05/26/2024 14:01 LOOSE HAND PACK[employer] [facility] National Teleradiology Program [phone] (For Medical Practitioner Use Only) Attention Patients / Veterans: If you have questions or concerns about these test results, please contact your ordering provider or primary care team. Primary Diagnostic Code: NO ALERT REQUIRED Secondary Diagnostic Codes: ABDOMINAL AORTIC ANEURYSM NOT PRESENT Primary Interpreting Staff: RADIOLOGY,OUTSIDE SERVICE, Staff Physician / RADIOLOGY,OUTSIDE SERVICE [place] [facility] Encounter Notes: All associated encounter notes This section contains the clinical notes associated to the Encounter. Date/Time Encounter Note(s) Provider Source Jun 14, 2024 09:39 AM PHARMACY MEDICATION MGT NOTE: LOCAL TITLE: PHARMACY ANTICOAGULATION NOTE STANDARD TITLE: PHARMACY MEDICATION MGT NOTE DATE OF NOTE: JUN 14, 2024@09:39 ENTRY DATE: JUN 14, 2024@09:39:43 AUTHOR: ORLY LONG EXP COSIGNER: URGENCY: STATUS: COMPLETED PHARMACY ANTICOAGULATION NOTE Has ADDENDA ANTICOAGULATION DOAC MONITORING NOTE SUBJECTIVE: Patient identified through the DOAC population Management Tool based on the following criteria: [ ] Dosing Issue [ ] Critical Drug Interaction [ ] Cancer Treatment [ ] Active NSAID [ X ] Labs Overdue [ ] Prosthetic Valve Replacement [ ] Notable Lab Value [ ] Overdue for Refill [ ] Other: Comments: CBC and Serum creatinine recommended every 12mths for this patient on DOAC therapy OBJECTIVE: Indication for anticoagulation: [ X ] Atrial fibrilation [ ] Atrial flutter [ ] VTE (DVT or PE) [ ] Post-op DVT prophylaxis [ ] Other: Most recent lab values include the following: HGB: HGB Collection DT Specimen Test Name Result Units Ref Range 05/16/2023 08:31 BLOOD HGB 16.7 g/dL 12.8 - 17 PLT: WBC Collection DT Specimen Test Name Result Units Ref Range 05/16/2023 08:31 BLOOD WBC 9.32 K/cmm 4.50 - 11.00 Liver Function Tests No data available for: AST ALT ALKALINE PHOSPHATASE ALBUMIN BILIRUBIN, TOTAL LDH PROTEIN,TOTAL HEIGHT: 67 in [170.2 cm] (06/19/2023 12:59) WEIGHT: 220 lb [99.79 kg] (05/18/2024 11:34) BMI: BMI: 34.5 CREATININE-EGFR - NONE FOUND CRCL IBW: CrCl(est): 61.5 mL/min (Creat:1.29 05/16/23) CRCL ACT: No Creat CRCL ADJ: 61.5 mL/min (05/16/23) ASSESSMENT: overdue labs Action required? [ X ] Yes [ ] No Comments: will have [facility] CPS order updated labs. will mail letter to patient asking that they have labs completed within the next 30 days PLAN: [ ] No action required, dismiss flag [ X ] Will intervene: [ X ] Patient education via phone/letter [ ] Schedule phone/qaxz-ey-eudw follow up [ X ] Lab ordered [ ] Discontinue interacting medication [ ] Discontinue DOAC [ ] Change to alternative DOAC [ ] Change DOAC dose [ ] Notify PCP [ ] Consult cardiology/hematology [ ] Other: Time spent: 10 min /jennifer LONG CPHT Clinical Coffee Weigher Signed: 06/14/2024 09:40 Receipt Acknowledged By: 06/14/2024 09:45 /jennifer Jane PharmD, [facility] Clinical Shank Turner 06/14/2024 ADDENDUM STATUS: COMPLETED Above case reviewed as entered by [facility] Disbursing Agent. Agree with current assessment and plan of care for this patient's anticoagulation management as noted. /jennifer Jane PharmD, BCPS Clinical Shank Turner Signed: 06/14/2024 09:45 ORLY LONG [facility]
--- OUTSIDE RECORDS SUMMARY | 2024-07-15 04:53 | XMS_ITS ---
Author Name [facility] [place] Address [address] [place] [address] Care Team Providers Care Records Tech Name Role Phone ORLY FELIX Primary Care [...] PART B Feb 29, 2024 PART B [id number] JAZLYN RENDON PATIENT Selected Encounter This section includes the information on record at [place] for the Encounter. Date/Time Encounter Type Encounter Description Reason Provider Source Jul 15, 2024 08:53 AM [facility] OL DIG ASSMT&MGMT 5-10 CLINICAL PHARMACY ICD-10-CM Z04.89 Encounter for examination and observation for oth reasons MARCELINO LEWIS Encounter Template Text not used by [place] Assessments - Encounter Diagnoses This section includes the primary and secondary diagnoses documented for the Encounter. Date/Time Primary/Secondary Diagnosis Diagnosis Name Provider Source Jul 15, 2024 12:27 PM PRIMARY Encounter for examination and observation for oth reasons MARCELINO LEWIS [facility] Plan of Treatment: Future Appointments (+ 6 months) and Future Tests (+/- 45 days) The Plan of Treatment section includes future care activities for the patient from all [place] [facility]. This section includes future appointments and future orders which are active, pending or scheduled. Future Appointments This section includes appointments that were scheduled to occur 6 months from the date of the Encounter, up to a maximum of 20 appointments. The data comes from all [place] treatment facilities. Appointment Date/Time Appointment Type Appointme nt Facility Name Nov 16, 2024 03:00 PM [facility] Dec 08, 2024 01:30 PM AM[facility]ULATORY - MEDICINE [facility] Dec 31, 2024 01:00 PM AMBULATORY - NONE [facility] Active, Pending, and Scheduled Orders This section includes a listing of several types of active, pending, and scheduled orders, including clinic medications orders, diagnostic test orders, procedure orders and consult orders; where the start date of the order is 45 days before the date of the Encounter or 45 days after the date of theEncounter. The [facility]. Test Date/Time Test Type Test Details Facility Name August 24, 2024 12:26 PM Consult Order [facility]-UROLOGY [facility] [employer] [facility] [place] Lab Results: +/- 30 days of the encounter This section includes the Chemistry and Hematology Lab Results on record with [place] for the patient. Radiology Reports and Pathology Reports are provided separately, in subsequent sections. Lab Results This section contains the Chemistry/Hematology Results that were resulted 30 days before or 30 daysafter the date of the Encounter. Date/Time Source Result Type Result - Unit Interpretation Reference Range Specimen Type Comment Jul 27, 2024 10:14 AM [facility] CREATININE (eGFR 2020) SERUM Specimen Type: SERUM No comment entered. Ordering Provider: DAVON CRUZ Report Released Date/Time: Jun 14, 2024 09:45 AM Reporting Lab: [facility] [address] [facility] [address] Performing Lab: [address] [address] CREATININE, Serum 1.01 mg/dL 0.72-1.25 eGFR(CKD-EPI 2020) 82 mL/min >60 Jul 27, 2024 10:14 AM [facility] CBC BLOOD Specimen Type: BLOOD No comment entered. Ordering Provider: DAVON CRUZ Report Released Date/Time: Jun 14, 2024 09:45 AM Reporting Lab: [facility] [address] [facility] [address] Performing Lab: [facility] [address] [facility] [address] WBC 8.20 10*3/uL 4.50-11.00 RBC 4.94 10*6/uL 4.23-5.66 HGB 14.9 g/dL 12.8-17 HCT 45.5 39.2-50.4 MCV 92.1 fL 82-99 MCHC 32.7 g/dL 30.8-35.1 PLT 242 10*3/uL 140-360 MPV 9.9 fL 9.2-12.4 RDW-CV 12.6 12.0-16.0 MCH 30.2 pg 26.2-32.6 Encounter Notes: All associated encounter notes This section contains the clinical notes associated to the Encounter. Date/Time Encounter Note(s) Provider Source Jul 15, 2024 08:53 AM PHARMACY MEDICATION MGT NOTE: LOCAL TITLE: PHARMACY ANTICOAGULATION NOTE STANDARD TITLE: PHARMACY MEDICATION MGT NOTE DATE OF NOTE: JUL 15, 2024@08:53 ENTRY DATE: JUL 15, 2024@08:53:51 AUTHOR: ORLY LONG EXP COSIGNER: URGENCY: STATUS: [...] Creat CRCL ADJ: 61.5 mL/min (05/16/23) ASSESSMENT: overude labs Action required? [ X ] Yes [ ] No Comments: [facility] has already ordered updated labs. Will mail second letter asking that labs be completed within the next 30 days. PLAN: [ ] No action required, dismiss flag [ X ] Will intervene: [ X ] Patient education via phone/letter [ ] Schedule phone/zlop-ap-yilq follow up [ ] Lab ordered [ ] Discontinue interacting medication [ ] Discontinue DOAC [ ] Change to alternative DOAC [ ] Change DOAC dose [ ] Notify PCP [ ] Consult cardiology/hematology [ ] Other: Time spent: 10 min /jennifer LONG CPHT Clinical Metal Dresser Signed: 07/15/2024 08:54 Receipt Acknowledged By: 07/15/2024 12:28 /jennifer Lewis PharmD, [facility] Clinical Ui Application Developer 07/15/2024 ADDENDUM STATUS: COMPLETED Reviewed blow pit helper note; agree w/ A/P as documented. /jennifer Lewis PharmD, M[facility] Clinical Ui Application Developer Signed: 07/15/2024 12:28 ORLY LONG [facility]
--- OUTSIDE RECORDS SUMMARY | 2024-07-28 03:42 | XMS_ITS | Encounter Summary ---
Author Name [facility] [place] Organization [facility] [place] [place] Address [address] [place] [id number] Care Team Providers Care Back Padder Name Role Phone ORLY FELIX Primary Care [...] PART B Feb 29, 2024 PART B [id number] JAZLYN RENDON PATIENT Selected Encounter This section includes the information on record at [place] for the Encounter. 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 Radiology Reports and Pathology Reports are provided separately, in subsequent sections. Lab Results This section contains the Chemistry/Hematology Results that were resulted 30 days before or 30 daysafter the date of the Encounter. Date/Time Source Result Type Result - Unit Interpretation Reference Range Specimen Type Comment Jul 27, 2024 10:14 AM [facility] CREATININE (eGFR 2020) SERUM Specimen Type: SERUM No comment entered. Ordering Provider: DAVON CRUZ Report Released Date/Time: Jun 14, 2024 09:45 AM Reporting Lab: [facility] [place] [address] [address] Performing Lab: [facility] [place] [address] [address] CREATININE, Serum 1.01 mg/dL 0.72-1.25 eGFR(CKD-EPI 2020) 82 mL/min >60 Jul 27, 2024 10:14 AM [facility] [place] [facility] CBC BLOOD Specimen Type: BLOOD No comment entered. Ordering Provider: DAVON CRUZ Report Released Date/Time: Jun 14, 2024 09:45 AM Reporting Lab: [facility] [place] [address] [address] Performing Lab: [facility] [place] [facility] [address] [facility] [address] WBC 8.20 10*3/uL 4.50-11.00 RBC 4.94 10*6/uL 4.23-5.66 HGB 14.9 g/dL 12.8-17 HCT 45.5 39.2-50.4 MCV 92.1 fL 82-99 MCHC 32.7 g/dL 30.8-35.1 PLT 242 10*3/uL 140-360 MPV 9.9 fL 9.2-12.4 RDW-CV 12.6 12.0-16.0 MCH 30.2 pg 26.2-32.6 Encounter Notes: All associated encounter notes This section contains the clinical notes associated to the Encounter. Date/Time Encounter Note(s) Provider Source Jul 28, 2024 07:42 AM LETTERS: LOCAL TITLE: PATIENT LETTER (T) STANDARD TITLE: LETTERS DATE OF NOTE: JUL 28, 2024@07:42 ENTRY DATE: JUL 28, 2024@07:42:56 AUTHOR: DAVON CRUZ COSIGNER: URGENCY: STATUS: COMPLETED DEPARTMENT OF [facility] Toll Free Number Primary Care Telephone Assistance can be reached at extension [phone] [facility] scheduling can be reached at extension [phone] [facility] scheduling can be reached at ext [phone] [facility]N [facility] [address] [place] [address], [id number] Dear [place], Thank you for coming in to have your labs drawn. A complete blood count was checked and remains stable. Your kidney function was also checked to ensure your dose of ELIQUIS (APIXABAN) is appropriate. Your kidney function remains stable and no dose adjustment is needed. Please find your lab results below, compared to your previous results. BLOOD Jul 27 May 16 Oct 30 Reference 2024 2023 2022 10:14 08:31 14:44 Units Ranges WBC 8.20 9.32 10.21 10*3/uL 4.5 - 11 RBC 4.94 5.51 5.11 10*6/uL 4.23 - 5.66 HGB 14.9 16.7 15.2 g/dL 12.8 - 17 HCT 45.5 50.1 47.2 % 39.2 - 50.4 MCV 92.1 90.9 92.4 fl 82 - 99 MCH 30.2 30.3 29.7 pg 26.2 - 32.6 MCHC 32.7 33.3 32.2 g/dL 30.8 - 35.1 RDW 12.6 12.2 12.8 % 12 - 16 PLT 242 222 270 10*3/uL 140 - 360 SERUM Jul 27 May 16 Oct 30 Reference 2024 2023 2022 10:14 08:31 14:44 Units Ranges CREATININE 1.01 1.29 1.28 mg/dL 0.72 - 1.25 If you have questions, please call the [place] [facility] at the following number(s): [phone]. [phone] Sincerely, Your Primary Care Team [facility] [address] [facility] [address] [place] [address] [place] [address] [phone] [facility] [address] [place] [address] [place] [address] [phone] [facility] [address] [facility] [place] [phone] [place] [address] [phone] DAVON CRUZ CB[facility]
--- OUTSIDE RECORDS SUMMARY | 2024-11-16 11:00 | XMS_ITS | Encounter Summary ---
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 Date/Time Encounter Type Encounter Description Reason Pro vider Source Nov 16, 2024 03:00 PM Outpatient Encounter PRIMARY CARE/MEDICINE [facility] Encounter Template Text not used by CT Plan of Treatment: Future Appointments (+ 6 months) and Future Tests (+/- 45 days) The Plan of Treatment section includes future care activities for the patient from all CT treatmentfacilities. This section includes future appointments and future orders which are active, pending or scheduled. Future Appointments This section includes appointments that were scheduled to occur 6 months from the date of the Encounter, up to a maximum of 20 appointments. The data comes from all CT treatment facilities. Appointment Date/Time Appointment Type Appointme nt Facility Name Dec 08, 2024 01:30 PM AMBULATORY - MEDICINE [facility] Dec 31, 2024 01:00 PM AMBULATORY - NONE [facility] Active, Pending, and Scheduled Orders This section includes a listing of several types of active, pending, and scheduled orders, including clinic medications orders, diagnostic test orders, procedure orders and consult orders; where the start date of the order is 45 days before the date of the Encounter or 45 days after the date of theEncounter. The data comes from all CT treatment facilities. Test Date/Time Test Type Test Details Facility Name Dec 31, 2024 12:00 AM Imaging - CT Scan Order LDCT LUNG CANCER SCREENING [facility] Social History: Smoking Status (Most current) and Tobacco Use (All prior to encounter date) This section includes the most current, and the historical, smoking and tobacco- related health factors from the [place] facility where the Encounter took place. Current Smoking Status This section includes the most current smoking, or tobacco-related health factor, from the [place] facility where the Encounter took place. Date/Time Current Smoking Status Comment Facil marcy May 18, 2024 11:30 AM VA-TOBACCO USE EVERY DAY CIGARET JORDYN [place] Tobacco Use History This section includes a history of the smoking, or tobacco-related health factors, that were collected on or before the date of the Encounter. The data comes from the [place] facility where the Encounter took place. 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 [place] Oct 30, 2022 02:00 PM VA-TOBACCO USE MED NO [place] Oct 30, 2022 02:00 PM VA-TOBACCO USE WI 30 MIN OF WAKEUP [place] Oct 30, 2022 02:00 PM VA-TOBACCO USER EVERY DAY [place] Mar 21, 2017 03:04 PM CURRENT SMOKER 2 packs daily [place] Mar 21, 2017 03:04 PM V1-PT DECLINES REF TO TOBACCO CESS [facility] Mar 21, 2017 03:04 PM V1-PT READY TO SIMONE T TOBACCO USE [place] Jun 28, 2016 11:02 AM CURRENT SMOKER [facility] Jun 28, 2016 11:02 AM V1-PT DECLINES REF TO TOBACCO CESS [facility] Jun 28, 2016 11:02 AM V1-PT DECLINES TOB ACCO CESSATION [facility] Jun 28, 2016 11:02 AM V1-PT THINKING ABO UT QUIT TOBACCO USE [place] Dec 28, 2014 09:38 AM CURRENT SMOKER [facility] Jun 21, 2013 03:36 PM CURRENT SMOKER smokes one ppd of cigaretts [place] Mar 30, 2012 10:55 AM V1-PT THINKING ABO UT QUIT TOBACCO USE [place] Oct 04, 2011 02:20 PM CURRENT SMOKER Pt smokes a pack and a half a day. [place] Oct 04, 2011 02:20 PM V1-PT DECLINES REF TO TOBACCO CESS [facility] Oct 04, 2011 02:20 PM V1-PT DECLINES TOB ACCO CESSATION [facility] Oct 04, 2011 02:20 PM V1-PT THINKING ABO UT QUIT TOBACCO USE [place]
--- OUTSIDE RECORDS SUMMARY | 2024-11-30 08:19 | XMS_ITS | Continuity of Care Document ---
Author Name [facility] Organization [facility] Care Team Providers Care Dry Sander Name Role Phone [facility] Unavailable Unavailable Problems Combined list of problems from Department of Defense and Veterans Affairs facilities. It does not include entries that were removed or entered in error. Problem Status Onset Date Problem Type Date of Resolution Comments Source Admits alcohol use Active Condition [place] Back pain Active Condition [place] Carcinoma of prostate Active Condition [facility] [place] [facility] Chronic atrial fibrillation Active Condition May 18, 2024 Entered By: JAZLYN MCCLOUD Comment: Atrial fib/flutter [facility] [place] [facility] Closed fracture right humerus Active Condition Jun 28, 2016 Entered By: MONISHA KAY Comment: 3 part fracture surgical neck Right HumerusOct 2014 Entered By: JUAN MONTES Comment: see X-Ray and CT Reports done DEC 13; refer Ortho [facility]Nov 2014 Entered By: JUAN MONTES Comment: See Notes, Ortho [facility] dt and FEB 12; Non-Op Case [place] Echocardiogram abnormal Active Condition May 15, 2023 Entered By: JIM MARX Comment: 12/21 Global Hypokinesis EF %45-50, Dilated RV [place] Elevated PSA Active Condition [facility] Hyperlipidemia (SCT 34931661) Active Condition [facility] Impaired Fasting Glucose (SCT 254844522) Active Condition [place] Knee pain (SNOMED CT 28404802) Active Condition [place] Long-term current use of anticoagulant (SNOMED CT 776787020) Active Condition [facility] [place] [facility] Lung Cancer Screening Active Condition May 15, 2023 Entered By: JIM MARX Comment: Chest Ct Scan: 12/21 [place] Lung Cancer Screening Active Condition Jun 19, 2023 Entered By: JIM MARX Comment: CT Scan Chest 12/21 [place] Nicotine dependence Active Condition [facility] [place] [facility] Screening for malignant neoplasm of colon done (SNOMED CT 998027552089930) Active Condition Jun 28 7 Entered By: MONISHA KAY Comment: Colonoscopy 01/20/12. F/U 10 years (2021)May 18, 2024 Entered By: JAZLYN MCCLOUD Comment: [place] 11/2023: Polyp x 3. Tubular adenoma x 2, hyperplastic polyp x 1. Repeat 2028. [place] Mixed hyperlipidemia Inactive Condition 05/15/2023 Jun 28, 2016 Entered By: MONISHA KAY Comment: 05/2016: TC 264 - Trig 197 - HDL 29 - LDL 196 [facility] Diagnosis: ICD-10-CM Z04.89 Encounter for examination and observation for oth reasons Active Diagnosis [facility] Diagnosis: ICD-10-CM C61 Malignant neoplasm of prostate Active Diagnosis [place] Diagnosis: ICD-10-CM Z12.2 Encntr screen for malignant neoplasm of respiratory organs Active Diagnosis [facility] Diagnosis: ICD-10-CM M54.9 Dorsalgia, unspecified Active Diagnosis [place] Diagnosis: ICD-10-CM Z79.01 half-way (current) use of anticoagulants Active Diagnosis [facility] (631GE) Medications Combined list of outpatient medications from Department of Defense and Veterans Affairs facilities.Medications provided include 1) outpatient medications from the last 15 months, and 2) patient-reported medications. Medication Details Route Status Patient Instructions Prescription Expires Prescription Number Last Dispense Date Ordering Provider Order Date Order Qty Source APIXABAN 5MG TAB TAKE ONE TABLET BY MOUTH EVERY 12 HOURS FOR ATRIAL FIBRILAT ION ORAL ACTIVE 09/29/2025 [id number] 5 Ashvin MCCLOUDD A 2024 180 [place] APIXABAN 5MG TAB TAKE ONE TABLET BY MOUTH EVERY 12 HOURS FOR ATRIAL FIBRILAT ION ORAL DISCONT INUED 07/19/2024 [id number] 5 Ashvin MCCLOUD A 2023 60 [place] CAMPHOR/MEN THOL/METHYL SALICYLATE PATCH APPLY 1 PATCH TOPICALL Y TWICE DAILY FOR PAIN (REMOVE PATCH AFTER 8 TO 12 HOURS) TOPICA L ACTIVE 11/17/2025 [id number] JULY,CRISELDA SINGH P 2024 60 [place] CARVEDILOL 3.125MG TAB TAKE ONE TABLET BY MOUTH TWICE DAILY ORAL 10/29/2024 [id number] Jennifer WALL A 2023 60 [place] FINASTERIDE 5MG TAB TAKE ONE TABLET BY MOUTH ONCE DAILY FOR ENLARGED PROSTATE ORAL ACTIVE 11/17/2025 [id number] 5 JULY,CRISELDA RLY P 2024 90 [place] FINASTERIDE 5MG TAB TAKE ONE TABLET BY MOUTH ONCE DAILY FOR ENLARGED PROSTATE ORAL DISCONT INUED 04/09/2025 [id number] BRITANY QUESADA S 2024 60 [facility] [place] [facility] LISINOPRIL 5MG TAB TAKE ONE TABLET BY MOUTH ONCE DAILY TO CONTROL BLOOD PRESSURE ORAL ACTIVE 06/22/2025 [id number] 5 Ashvin MCCLOUD A 2024 90 [place] LISINOPRIL 5MG TAB TAKE ONE TABLET BY MOUTH ONCE DAILY TO CONTROL BLOOD PRESSURE ORAL DISCONT INUED 10/29/2024 [id number] Jennifer WALL A 2023 90 [facility] IELD ROSUVASTATI N CA 20MG TAB TAKE ONE TABLET BY MOUTH ONCE DAILY FOR CHOLESTE ROL ORAL ACTIVE 09/29/2025 [id number] 5 Ashvin MCCLOUD A 2024 90 [facility] IELD ROSUVASTATI N [place] 20MG TAB TAKE ONE TABLET BY MOUTH ONCE DAILY FOR CHOLESTE ROL ORAL DISCONT INUED 09/24/2024 [id number] Jennifer WALL A 2023 90 [facility] IELD ROSUVASTATI N [place] 20MG TAB TAKE ONE-HALF TABLET BY MOUTH AT BEDTIME FOR CHOLESTE ROL ORAL DISCONT INUED 07/19/2024 [id number] 4 Ashvin MCCLOUD A 2023 45 [place] Immunizations Combined list of available immunizations from the Department of Defense and Veterans Affairs facilities. Immunization Series Date Given Administered By Site Reaction Lot Number CVX Code Drug Unit Aide Tech Status Comments Source INFLUENZA, UNSPECIFIED FORMULATION 2023 88 complet ed HISTORICA L INFORMATI ON - FROM PATIENT'S RECALL, [facility] COVID-19 (MODERNA), MRNA, LNP-S, PF, 50 MCG/0.5 ML (AGES 12+ YEARS) 1 2023 NANCY KAY RIGHT ARM [id number] complet ed [facility], [facility] IELD INFLUENZA, INJECTABLE, QUADRIVALENT, PRESERVATIVE FREE 2023 BRIE,MULUGETA E R RIGHT DELTO ID [id number] A 150 complet ed ADMINISTE RED AT [facility] [facility] ZOSTER RECOMBINANT 2023 BRIE,MULUGETA E R RIGHT DELTO ID [id number] 187 complet ed ADMINISTE [facility] AT [facility] COVID-19 (PFIZER), MRNA, LNP-S, PF, 30 MCG/0.3 ML DOSE 2 2020 208 complet ed PFR; [id number]; 1 [facility] [facility] COVID-19 (PFIZER), MRNA, LNP-S, PF, 30 MCG/0.3 ML DOSE 1 2020 208 complet ed PFR; [id number]; 1 [facility] [facility] FLU,3 YRS (HISTORICAL) 2016 88 complet ed Site: Left Deltoid [place] PNEUMOCOCCAL CONJUGATE PCV 13 2016 133 complet ed [place] FLU,3 YRS (HISTORICAL) 2014 88 complet ed Site: Left Deltoid [place] FLU,3 YRS (HISTORICAL) 2011 88 complet ed Site: Left Deltoid [place] DTAP, UNSPECIFIED FORMULATION 2011 KRYSTEN SOTOMAYOR 107 complet ed [place] PNEUMOCOCCAL, UNSPECIFIED FORMULATION 2011 KRYSTEN SOTOMAYOR 109 complet ed [place] FLU,3 YRS (HISTORICAL) 2010 88 complet ed [facility] [employer] [facility] Results Combined list of recent chemistry, hematology and other laboratory results from Department of Defense and Veterans Affairs, ranging from 15 months to all on record, depending upon the facility. Order Name Results Value Reference Range Date Interpretation Specimen Comments Source LIPID PANEL, NON FASTING CHOLESTEROL [MASS/VOLUM E] IN SERUM OR PLASMA 139 mg/dL 09/27 Specimen Type: SERUM No comment entered. Ordering Provider: JAY MCCLOUD A Report Released Date/Time: Sep 21, 2024 01:48 PM Reporting Lab: [facility] [place] [address] [address] Performing Lab: [facility] [address] [place] LIPID PANEL, NON FASTING TRIGLYCERID E [MASS/VOLUM E] IN SERUM OR PLASMA 117 mg/dL 0 - 150 09/27 Specimen Type: SERUM No comment entered. Ordering Provider: JAY MCCLOUD A Report Released Date/Time: Sep 21, 2024 01:48 PM Reporting Lab: [facility] [place] [address] [address] Performing Lab: [facility] [address] [address] [place] LIPID PANEL, NON FASTING CHOLESTEROL IN LDL [MASS/VOLUM E] IN SERUM OR PLASMA BY CALCULATION 89 mg/dL 0 - 129 09/27 Specimen Type: SERUM No comment entered. Ordering Provider: JAY MCCLOUD A Report Released Date/Time: Sep 21, 2024 01:48 PM Reporting Lab: [facility] [place] [address] [address] Performing Lab: [facility]ENTER[facility] [address] [address] [place] LIPID PANEL, NON FASTING CHOLESTEROL .TOTAL/CHOL ESTEROL IN HDL [MASS RATIO] IN SERUM OR PLASMA 5.1 09/27 Specimen Type: SERUM No comment entered. Ordering Provider: JAY MCCLOUD A Report Released Date/Time: Sep 21, 2024 01:48 PM Reporting Lab: [facility]ENTER[facility] [address] Performing Lab: [facility] [address] [facility] [address] [place] LIPID PANEL, NON FASTING CHOLESTEROL IN HDL [MASS/VOLUM E] IN SERUM OR PLASMA 27 mg/dL 40 09/27 L Specimen Type: SERUM No comment entered. Ordering Provider: JAY MCCLOUD A Report Released Date/Time: Sep 21, 2024 01:48 PM Reporting Lab: [facility] [address] [facility] [address] Performing Lab: [facility] [address] [facility] [address] [place] BASIC METABOLIC PANEL (non-fast ing) UREA NITROGEN [MASS/VOLUM E] IN SERUM OR PLASMA 21 mg/dL 8 - 26 09/27 Specimen Type: SERUM No comment entered. Ordering Provider: JAY MCCLOUD A Report Released Date/Time: Sep 21, 2024 01:48 PM Reporting Lab: [address] [address] Performing Lab: [address] [address] [place] BASIC METABOLIC PANEL (non-fast ing) GLUCOSE [MASS/VOLUM E] IN SERUM OR PLASMA 84 mg/dL 65 - 100 09/27 Specimen Type: SERUM No comment entered. Ordering Provider: JAY MCCLOUD A Report Released Date/Time: Sep 21, 2024 01:48 PM Reporting Lab: [address] [address] Performing Lab: [address] [address] [place] BASIC METABOLIC PANEL (non-fast ing) SODIUM [MOLES/VOLU ME] IN SERUM OR PLASMA 142 mmol/L 136 - 145 09/27 Specimen Type: SERUM No comment entered. Ordering Provider: JAY MCCLOUD A Report Released Date/Time: Sep 21, 2024 01:48 PM Reporting Lab: [address] [address] Performing Lab: [place] [address] [facility] [address] [place] BASIC METABOLIC PANEL (non-fast ing) POTASSIUM [MOLES/VOLU ME] IN SERUM OR PLASMA 4.3 mmol/L 3.5 - 5.1 09/27 Specimen Type: SERUM No comment entered. Ordering Provider: JAY MCCLOUD A Report Released Date/Time: Sep 21, 2024 01:48 PM Reporting Lab: [facility] [address] [address] Performing Lab: [facility] [address] [address] [place] BASIC METABOLIC PANEL (non-fast ing) CHLORIDE [MOLES/VOLU ME] IN SERUM OR PLASMA 106 mmol/L 98 - 107 09/27 Specimen Type: SERUM No comment entered. Ordering Provider: JAY MCCLOUD A Report Released Date/Time: Sep 21, 2024 01:48 PM Reporting Lab: [address] [address] Performing Lab: [facility] [address] [address] [place] BASIC METABOLIC PANEL (non-fast ing) CARBON DIOXIDE, TOTAL [MOLES/VOLU ME] IN SERUM OR PLASMA 28 meq/L 23 - 31 09/27 Specimen Type: SERUM No comment entered. Ordering Provider: JAY MCCLOUD A Report Released Date/Time: Sep 21, 2024 01:48 PM Reporting Lab: [facility] [address] [address] Performing Lab: [address] [address] [place] BASIC METABOLIC PANEL (non-fast ing) CALCIUM [MASS/VOLUM E] IN SERUM OR PLASMA 8.7 mg/dL 8.8 - 10 09/27 L Specimen Type: SERUM No comment entered. Ordering Provider: JAY MCCLOUD A Report Released Date/Time: Sep 21, 2024 01:48 PM Reporting Lab: [address] [address] Performing Lab: [facility]RTAYL[facility]N [facility] [address] [facility] [address] [place] BASIC METABOLIC PANEL (non-fast ing) CREATININE [MASS/VOLUM E] IN SERUM OR PLASMA 1.20 mg/dL 0.72 - 1.25 09/27 Specimen Type: SERUM No comment entered. Ordering Provider: JAY MCCLOUD A Report Released Date/Time: Sep 21, 2024 01:48 PM Reporting Lab: [facility]ITALRENCOM[facility] COUNTYTRN [facility]USE[facility] [address] [facility] [address] Performing Lab: [facility] [address] [address] [place] BASIC METABOLIC PANEL (non-fast ing) GLOMERULAR FILTRATION RATE/1.73 SQ M.PREDICTED [VOLUME RATE/AREA] IN SERUM, PLASMA OR BLOOD BY CREATININE- BASED FORMULA (CKD-EPI 2020) 67 mL/min 60 09/27 Specimen Type: SERUM No comment entered. Ordering Provider: JAY MCCLOUD A Report Released Date/Time: Sep 21, 2024 01:48 PM Reporting Lab: [facility] [address] [address] Performing Lab: [facility] [address] [address] [place] LIVER FUNCTION PROTEIN [MASS/VOLUM E] IN SERUM OR PLASMA 6.7 g/dL 6.4 - 8.3 09/27 Specimen Type: SERUM No comment entered. Ordering Provider: JAY MCCLOUD A Report Released Date/Time: Sep 21, 2024 01:48 PM Reporting Lab: [facility]ITALRTAYL[facility]ACILITYN [address] [address] Performing Lab: [facility] [address] [address] [place] LIVER FUNCTION ALBUMIN [MASS/VOLUM E] IN SERUM OR PLASMA BY BROMOCRESOL PURPLE (BCP) DYE BINDING METHOD 4.6 g/dL 3.2 - 4.6 09/27 Specimen Type: SERUM No comment entered. Ordering Provider: JAY MCCLOUD A Report Released Date/Time: Sep 21, 2024 01:48 PM Reporting Lab: [facility]ENTER[facility] [address] [facility] [address] Performing Lab: [facility]ENTERUSETS [address] [address] [place] LIVER FUNCTION ALKALINE PHOSPHATASE [ENZYMATIC ACTIVITY/VO LUME] IN SERUM OR PLASMA 69 U/L 40 - 150 09/27 Specimen Type: SERUM No comment entered. Ordering Provider: JAY MCCLOUD A Report Released Date/Time: Sep 21, 2024 01:48 PM Reporting Lab: [facility] [address] [address] Performing Lab: [facility]ENTERUSE[address] [address] [place] LIVER FUNCTION ASPARTATE AMINOTRANSF ERASE [ENZYMATIC ACTIVITY/VO LUME] IN SERUM OR PLASMA BY WITH P-5'-P 26 U/L 5 - 34 09/27 Specimen Type: SERUM No comment entered. Ordering Provider: JAY MCCLOUD A Report Released Date/Time: Sep 21, 2024 01:48 PM Reporting Lab: [facility]ENTER[facility] [address] [address] Performing Lab: [facility]ENTERUSETS [address] [address] [place] LIVER FUNCTION ALANINE AMINOTRANSF ERASE [ENZYMATIC ACTIVITY/VO LUME] IN SERUM OR PLASMA BY WITH P-5'-P 37 U/L 0 - 55 09/27 Specimen Type: SERUM No comment entered. Ordering Provider: JAY MCCLOUD A Report Released Date/Time: Sep 21, 2024 01:48 PM Reporting Lab: [facility]ITALRL [facility]ENTERUSETS [address] [address] Performing Lab: [facility]ITALRL TRN [facility]ENTERUSE[address] [address] [place] LIVER FUNCTION BILIRUBIN.T OTAL [MASS/VOLUM E] IN SERUM OR PLASMA 0.7 mg/dL 0.2 - 1.2 09/27 Specimen Type: SERUM No comment entered. Ordering Provider: JAY MCCLOUD A Report Released Date/Time: Sep 21, 2024 01:48 PM Reporting Lab: [address] [address] Performing Lab: [address] [address] [place] HEMOGLOBI N A1C PANEL HEMOGLOBIN A1C/HEMOGLO BIN.TOTAL IN BLOOD BY IFCC PROTOCOL 5.7 4.0 - 5.6 09/27 H Specimen Type: BLOOD Comment: Values obtained from A1C measurement s can vary. For atypical A1C assays, a reported value of 7.0 could actually be between 6.72 and 7.28 if measured by a reference method. A reported value of 9.0 could actually be between 8.73 and 9.27. Ref: http://www. ngsp.org/[place] Pdata.asp Ordering Provider: JAY MCCLOUD A Report Released Date/Time: Sep 21, 2024 01:48 PM Reporting Lab: [address] [address] Performing Lab: [address] [address] [place] TSH THYROTROPIN [UNITS/VOLU ME] IN SERUM OR PLASMA BY DETECTION LIMIT <= 0.005 MIU/L 1.39 u[IU]/ mL 0.35 - 4.94 09/27 Specimen Type: SERUM No comment entered. Ordering Provider: JAY MCCLOUD A Report Released Date/Time: Sep 21, 2024 01:48 PM Reporting Lab: [address] [address] Performing Lab: [address] [address] [place] CBC AND DIFF (AUTO) LEUKOCYTES [#/VOLUME] IN BLOOD BY AUTOMATED COUNT 9.37 10*3/u L 4.50 - 11.00 09/27 Specimen Type: BLOOD No comment entered. Ordering Provider: JAY MCCLOUD A Report Released Date/Time: Sep 21, 2024 01:48 PM Reporting Lab: [facility] [place] [facility] [address] [facility] [address] Performing Lab: [facility]ITALRTAYL[facility]ACILITYN [facility] CENTERUSETS [address] [address] [place] CBC AND DIFF (AUTO) ERYTHROCYTE S [#/VOLUME] IN BLOOD BY AUTOMATED COUNT 4.90 10*6/u L 4.23 - 5.66 09/27 Specimen Type: BLOOD No comment entered. Ordering Provider: JAY MCCLOUD A Report Released Date/Time: Sep 21, 2024 01:48 PM Reporting Lab: [facility]RTAYL[facility]ILITYN [facility]ENTERUSETS [address] [address] Performing Lab: [facility] [address] [address] [place] CBC AND DIFF (AUTO) HEMOGLOBIN [MASS/VOLUM E] IN BLOOD 14.8 g/dL 12.8 - 17 09/27 Specimen Type: BLOOD No comment entered. Ordering Provider: JAY MCCLOUD A Report Released Date/Time: Sep 21, 2024 01:48 PM Reporting Lab: [facility]ITALRTAYL[facility]ILITYN [facility]ERT[facility] [address] [address] Performing Lab: [facility]ITALRTAYL[facility]ACILITYN [facility] CENTERUSETS [address] [address] [place] CBC AND DIFF (AUTO) HEMATOCRIT [VOLUME FRACTION] OF BLOOD BY AUTOMATED COUNT 45.5 39.2 - 50.4 09/27 Specimen Type: BLOOD No comment entered. Ordering Provider: JAY MCCLOUD A Report Released Date/Time: Sep 21, 2024 01:48 PM Reporting Lab: [facility]RTAYL[facility]ILITYN [facility]ENTERUSE[address] [address] Performing Lab: [facility]ENTERUSE[address] [address] [place] CBC AND DIFF (AUTO) MCV [ENTITIC VOLUME] BY AUTOMATED COUNT 92.9 fL 82 - 99 09/27 Specimen Type: BLOOD No comment entered. Ordering Provider: JAY MCCLOUD A Report Released Date/Time: Sep 21, 2024 01:48 PM Reporting Lab: [facility] [place] [facility] [address] [facility] [address] Performing Lab: [facility] [place] [facility] [address] [facility] [address] [place] CBC AND DIFF (AUTO) MCHC [MASS/VOLUM E] BY AUTOMATED COUNT 32.5 g/dL 30.8 - 35.1 09/27 Specimen Type: BLOOD No comment entered. Ordering Provider: JAY MCCLOUD A Report Released Date/Time: Sep 21, 2024 01:48 PM Reporting Lab: [facility] [place] [facility] [address] [facility] [address] Performing Lab: [facility] [place] [address] [address] [place] CBC AND DIFF (AUTO) PLATELETS [#/VOLUME] IN BLOOD BY AUTOMATED COUNT 236 10*3/u L 140 - 360 09/27 Specimen Type: BLOOD No comment entered. Ordering Provider: JAY MCCLOUD A Report Released Date/Time: Sep 21, 2024 01:48 PM Reporting Lab: [facility] [place] [address] [address] Performing Lab: [facility] [place] [address] [address] [place] CBC AND DIFF (AUTO) PLATELET MEAN VOLUME [ENTITIC VOLUME] IN BLOOD BY AUTOMATED COUNT 10.1 fL 9.2 - 12.4 09/27 Specimen Type: BLOOD No comment entered. Ordering Provider: JAY MCCLOUD A Report Released Date/Time: Sep 21, 2024 01:48 PM Reporting Lab: [facility] [place] [address] [address] Performing Lab: [facility] [place] [address] [address] [place] CBC AND DIFF (AUTO) ERYTHROCYTE DISTRIBUTIO N WIDTH [RATIO] BY AUTOMATED COUNT 12.8 12.0 - 16.0 09/27 Specimen Type: BLOOD No comment entered. Ordering Provider: JAY MCCLOUD A Report Released Date/Time: Sep 21, 2024 01:48 PM Reporting Lab: [facility] [place] [facility] [address] [facility] [address] Performing Lab: [facility] [place] [address] [address] [place] CBC AND DIFF (AUTO) MONOCYTES [#/VOLUME] IN BLOOD BY AUTOMATED COUNT 0.83 10*3/u L 0.30 - 1.10 09/27 Specimen Type: BLOOD No comment entered. Ordering Provider: JAY MCCLOUD A Report Released Date/Time: Sep 21, 2024 01:48 PM Reporting Lab: [facility] [place] [address] [address] Performing Lab: [facility] [place] [address] [address] [place] CBC AND DIFF (AUTO) MCH [ENTITIC MASS] BY AUTOMATED COUNT 30.2 pg 26.2 - 32.6 09/27 Specimen Type: BLOOD No comment entered. Ordering Provider: JAY MCCLOUD A Report Released Date/Time: Sep 21, 2024 01:48 PM Reporting Lab: [facility] [place] [address] [address] Performing Lab: [facility] [place] [address] [address] [place] CBC AND DIFF (AUTO) NEUTROPHILS /100 LEUKOCYTES IN BLOOD BY AUTOMATED COUNT 64.1 43.7 - 75.8 09/27 Specimen Type: BLOOD No comment entered. Ordering Provider: JAY MCCLOUD A Report Released Date/Time: Sep 21, 2024 01:48 PM Reporting Lab: [facility] [place] [address] [address] Performing Lab: [facility] [place] [address] [address] [place] CBC AND DIFF (AUTO) LYMPHOCYTES /100 LEUKOCYTES IN BLOOD BY AUTOMATED COUNT 22.7 14.0 - 42.3 09/27 Specimen Type: BLOOD No comment entered. Ordering Provider: JAY MCCLOUD A Report Released Date/Time: Sep 21, 2024 01:48 PM Reporting Lab: [facility] [address] [address] Performing Lab: [facility]ITALRENCOM[facility] SHEL[facility] COUNTYTRN [address] [address] [place] CBC AND DIFF (AUTO) MONOCYTES/1 00 LEUKOCYTES IN BLOOD BY AUTOMATED COUNT 8.9 5.1 - 13.7 09/27 Specimen Type: BLOOD No comment entered. Ordering Provider: JAY MCCLOUD A Report Released Date/Time: Sep 21, 2024 01:48 PM Reporting Lab: [facility] [address] [address] Performing Lab: [facility]RTAYL[facility]ILITYN [address] [address] [place] CBC AND DIFF (AUTO) EOSINOPHILS /100 LEUKOCYTES IN BLOOD BY AUTOMATED COUNT 3.2 0.4 - 6.8 09/27 Specimen Type: BLOOD No comment entered. Ordering Provider: JAY MCCLOUD A Report Released Date/Time: Sep 21, 2024 01:48 PM Reporting Lab: [facility]TRN [address] [address] Performing Lab: [facility] [address] [address] [place] CBC AND DIFF (AUTO) BASOPHILS/1 00 LEUKOCYTES IN BLOOD BY AUTOMATED COUNT 0.6 0.1 - 2.0 09/27 Specimen Type: BLOOD No comment entered. Ordering Provider: JAY MCCLOUD A Report Released Date/Time: Sep 21, 2024 01:48 PM Reporting Lab: [facility] TRN [address] [address] Performing Lab: [facility]RT[facility]N [address] [address] [place] CBC AND DIFF (AUTO) NEUTROPHILS [#/VOLUME] IN BLOOD BY AUTOMATED COUNT 6.00 10*3/u L 2.20 - 7.60 09/27 Specimen Type: BLOOD No comment entered. Ordering Provider: JAY MCCLOUD A Report Released Date/Time: Sep 21, 2024 01:48 PM Reporting Lab: [facility]N [place] [address] [facility] [address] Performing Lab: [facility] TRN [facility]ENTERUSE[address] [address] [place] CBC AND DIFF (AUTO) LYMPHOCYTES [#/VOLUME] IN BLOOD BY AUTOMATED COUNT 2.13 10*3/u L 1.00 - 3.20 09/27 Specimen Type: BLOOD No comment entered. Ordering Provider: JAY MCCLOUD A Report Released Date/Time: Sep 21, 2024 01:48 PM Reporting Lab: [facility] TRN [address] [address] Performing Lab: [facility]ITALRTAYLOR [facility]ILITYN [address] [address] [place] CBC AND DIFF (AUTO) EOSINOPHILS [#/VOLUME] IN BLOOD BY AUTOMATED COUNT 0.30 10*3/u L 0.03 - 0.44 09/27 Specimen Type: BLOOD No comment entered. Ordering Provider: JAY MCCLOUD A Report Released Date/Time: Sep 21, 2024 01:48 PM Reporting Lab: [facility]ITALRTAYL[facility]ACILITYN [address] [address] Performing Lab: [facility]ITALREN[facility] COUNTYTRN [facility]ENTERUSE[address] [address] [place] CBC AND DIFF (AUTO) BASOPHILS [#/VOLUME] IN BLOOD BY AUTOMATED COUNT 0.06 10*3/u L 0.01 - 0.13 09/27 Specimen Type: BLOOD No comment entered. Ordering Provider: JAY MCCLOUD A Report Released Date/Time: Sep 21, 2024 01:48 PM Reporting Lab: [facility]ITALRENCOM[facility] COUNTYTRN [facility]ENTERUSE[address] [address] Performing Lab: [facility]ITALRTAYLOR [facility] FACILITYN [facility]ENTERUSE[address] [address] [place] CBC AND DIFF (AUTO) IMMATURE GRANULOCYTE S/100 LEUKOCYTES IN BLOOD BY AUTOMATED COUNT 0.5 0.0 - 0.7 09/27 Specimen Type: BLOOD No comment entered. Ordering Provider: JAY MCCLOUD A Report Released Date/Time: Sep 21, 2024 01:48 PM Reporting Lab: [facility]ITALRENCOM[facility] COUNTYTRN [facility]ENTERUSE[address] [address] Performing Lab: [facility]ENTERUSE[address] [address] [place] CBC AND DIFF (AUTO) IMMATURE GRANULOCYTE S [#/VOLUME] IN BLOOD BY AUTOMATED COUNT 0.05 10*3/u L 0.00 - 0.06 09/27 Specimen Type: BLOOD No comment entered. Ordering Provider: JAY MCCLOUD A Report Released Date/Time: Sep 21, 2024 01:48 PM Reporting Lab: [facility] [address] [address] Performing Lab: [facility] [address] [address] [place] CBC AND DIFF (AUTO) NUCLEATED ERYTHROCYTE S/100 LEUKOCYTES [RATIO] IN BLOOD BY AUTOMATED COUNT 0.0 0.0 - 0.0 09/27 Specimen Type: BLOOD No comment entered. Ordering Provider: JAY MCCLOUD A Report Released Date/Time: Sep 21, 2024 01:48 PM Reporting Lab: [facility] [address] [address] Performing Lab: [facility] [address] [address] [place] CBC AND DIFF (AUTO) NUCLEATED ERYTHROCYTE S [#/VOLUME] IN BLOOD BY AUTOMATED COUNT 0.00 10*3/u L 0.00 - 0.00 09/27 Specimen Type: BLOOD No comment entered. Ordering Provider: JAY MCCLOUD A Report Released Date/Time: Sep 21, 2024 01:48 PM Reporting Lab: [facility] [address] [address] Performing Lab: [address] [address] [place] PSA PROSTATE SPECIFIC AG [MASS/VOLUM E] IN SERUM OR PLASMA BY IMMUNOASSAY 4.9 ng/mL 0 - 4 09/27 H Specimen Type: SERUM No comment entered. Ordering Provider: MCCLOUD,JAY ID A Report Released Date/Time: Sep 21, 2024 01:48 PM Reporting Lab: [facility] [place] [facility] [address] [facility] [address] Performing Lab: [facility] [place] [facility] [address] [facility] [address] [facility] CREATININ E (eGFR 2020) CREATININE [MASS/VOLUM E] IN SERUM OR PLASMA 1.01 mg/dL 0.72 - 1.25 07/27 Specimen Type: SERUM No comment entered. Ordering Provider: CHARLENE CRUZ Report Released Date/Time: Jun 14, 2024 09:45 AM Reporting Lab: [facility] [place] [facility] [address] [facility] [address] Performing Lab: [facility] [place] [facility] [address] [facility] [address] [place] [facility] [place] [facility] CREATININ E (eGFR 2020) GLOMERULAR FILTRATION RATE/1.73 SQ M.PREDICTED [VOLUME RATE/AREA] IN SERUM, PLASMA OR BLOOD BY CREATININE- BASED FORMULA (CKD-EPI 2020) 82 mL/min 60 07/27 Specimen Type: SERUM No comment entered. Ordering Provider: CHARLENE CRUZ Report Released Date/Time: Jun 14, 2024 09:45 AM Reporting Lab: [facility] [place] [facility] [address] [facility] [address] Performing Lab: [facility] [place] [facility] [address] [facility] [address] [place] [facility] [facility] CBC LEUKOCYTES [#/VOLUME] IN BLOOD BY AUTOMATED COUNT 8.20 10*3/u L 4.50 - 11.00 07/27 Specimen Type: BLOOD No comment entered. Ordering Provider: CHARLENE CRUZ Report Released Date/Time: Jun 14, 2024 09:45 AM Reporting Lab: [facility] [place] [facility] [address] [facility] [address] Performing Lab: [facility] [place] [address] [address] [facility] [place] [facility] CBC ERYTHROCYTE S [#/VOLUME] IN BLOOD BY AUTOMATED COUNT 4.94 10*6/u L 4.23 - 5.66 07/27 Specimen Type: BLOOD No comment entered. Ordering Provider: CHARLENE CRUZ Report Released Date/Time: Jun 14, 2024 09:45 AM Reporting Lab: [facility] [place] [facility] [address] [facility] [address] Performing Lab: [facility] [place] [facility] [address] [facility] [address] [facility] [place] [facility] CBC HEMOGLOBIN [MASS/VOLUM E] IN BLOOD 14.9 g/dL 12.8 - 17 07/27 Specimen Type: BLOOD No comment entered. Ordering Provider: CHARLENE CRUZ Report Released Date/Time: Jun 14, 2024 09:45 AM Reporting Lab: [facility] [place] [address] [address] Performing Lab: [facility] [address] [address] [facility] [place] [facility] CBC HEMATOCRIT [VOLUME FRACTION] OF BLOOD BY AUTOMATED COUNT 45.5 39.2 - 50.4 07/27 Specimen Type: BLOOD No comment entered. Ordering Provider: CHARLENE CRUZ Report Released Date/Time: Jun 14, 2024 09:45 AM Reporting Lab: [facility] [place] [address] [address] Performing Lab: [facility] [place] [facility] [address] [facility] [address] [facility] [place] [facility] CBC MCV [ENTITIC VOLUME] BY AUTOMATED COUNT 92.1 fL 82 - 99 07/27 Specimen Type: BLOOD No comment entered. Ordering Provider: CHARLENE CRUZ Report Released Date/Time: Jun 14, 2024 09:45 AM Reporting Lab: [facility] [place] [address] [address] Performing Lab: [facility] [place] [address] [address] [facility] [place] [facility] CBC MCHC [MASS/VOLUM E] BY AUTOMATED COUNT 32.7 g/dL 30.8 - 35.1 07/27 Specimen Type: BLOOD No comment entered. Ordering Provider: CHARLENE CRUZ Report Released Date/Time: Jun 14, 2024 09:45 AM Reporting Lab: [facility] [place] [facility] [address] [facility] [address] Performing Lab: [facility] [place] [facility] [address] [facility] [address] [facility] [place] [facility] CBC PLATELETS [#/VOLUME] IN BLOOD BY AUTOMATED COUNT 242 10*3/u L 140 - 360 07/27 Specimen Type: BLOOD No comment entered. Ordering Provider: CHARLENE CRUZ Report Released Date/Time: Jun 14, 2024 09:45 AM Reporting Lab: [facility] [place] [facility] [address] [facility] [address] Performing Lab: [facility] [place] [address] [address] [place] [facility] [facility] CBC PLATELET MEAN VOLUME [ENTITIC VOLUME] IN BLOOD BY AUTOMATED COUNT 9.9 fL 9.2 - 12.4 07/27 Specimen Type: BLOOD No comment entered. Ordering Provider: CHARLENE CRUZ Report Released Date/Time: Jun 14, 2024 09:45 AM Reporting Lab: [facility] [place] [address] [address] Performing Lab: [facility] [place] [facility] [address] [facility] [address] [facility] [place] [facility] CBC ERYTHROCYTE DISTRIBUTIO N WIDTH [RATIO] BY AUTOMATED COUNT 12.6 12.0 - 16.0 07/27 Specimen Type: BLOOD No comment entered. Ordering Provider: CHARLENE CRUZ Report Released Date/Time: Jun 14, 2024 09:45 AM Reporting Lab: [facility] [place] [facility] [address] [facility] [address] Performing Lab: [facility] [place] [facility] [address] [facility] [address] [facility] [place] [facility] CBC MCH [ENTITIC MASS] BY AUTOMATED COUNT 30.2 pg 26.2 - 32.6 07/27 Specimen Type: BLOOD No comment entered. Ordering Provider: CHARLENE CRUZ Report Released Date/Time: Jun 14, 2024 09:45 AM Reporting Lab: [facility] [place] [facility] [address] [facility] [address] Performing Lab: [facility] [place] [facility] [address] [facility] [address] [facility] [facility] PSA PROSTATE SPECIFIC AG [MASS/VOLUM E] IN SERUM OR PLASMA 3.55 ng/mL 0.00 - 4.00 02/18 Specimen Type: SERUM No comment entered. Ordering Provider: JAY MCCLOUD Report Released Date/Time: Feb 04, 2024 11:02 AM Reporting Lab: [facility] [place] [facility] [address] [facility] [address] Performing Lab: [facility] [place] [facility] [address] [facility] [address] [facility] Vital Signs Combined list of inpatient and outpatient Vital Signs from Department of Defense and Veterans Affairs, ranging from 12 months to all on record, depending upon the facility. Vital Sign Value Date Comments Source SYSTOLIC BLOOD PRESSURE 95 11/17/19 25 15:05:47 [facility] [place] [facility] DIASTOLIC BLOOD PRESSURE 60 025 15:05:47 [facility] [place] [facility] PULSE OXIMETRY 95 % 11/16/2024 15:05:47 [facility] [place] [facility] WEIGHT 211 11/16/2024 15:05:47 [facility] [place] [facility] BMI 33 kg/m2 11/16/2024 15:05:47 [facility] [place] [facility] HEIGHT 67 11/16/2024 15:05:47 [facility] [place] [facility] TEMPERATURE 97.9 11/16/2024 15:05:47 [place] [facility] [place] [facility] PULSE 86 11/16/2024 15:05:47 [facility] [place] [facility] RESPIRATION 19 11/16/2024 15:05:47 [place] [facility] [facility] SYSTOLIC BLOOD PRESSURE 113 05/18/19 11:34:57 [place] DIASTOLIC BLOOD PRESSURE 73 025 11:34:57 [place] PULSE OXIMETRY 95 05/18/2024 11:34:57 [place] WEIGHT 220 05/18/2024 11:34:57 [place] BMI 35 kg/m2 05/18/2024 11:34:57 [place] TEMPERATURE 96.8 05/18/2024 11:34:57 [place] PULSE 88 05/18/2024 11:34:57 [place] Encounters Combined list of: 1) Encounters from Department of [facility] Affairs facilities going backup to the last 18 months, not all [place] inpatient encounters are included; 2) Encounters from the Department of [facility] facilities going backup to 280 months. 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 LD OFFICE O/P EST HI 40 MIN [id number] Diagnos is: ICD-10- CM M54.9 [place], unspeci fied BIGG MARX 06/18 [place] [facility] Outpatient Encounter [id number] 07/30 [place] [facility] [facility] [place] [facility] Outpatient Encounter [id number] 09/22 [facility] [place] En[facility] [id number] 09/30 [facility] [place] En[facility] [id number] 10/27 [facility] [place] [facility] En[facility] [id number] 10/28 [facility] [place] [facility] En[facility] [id number] 11/21 [facility] [place] En[facility] [id number] 11/25 [facility] [place] [facility] En[facility] [id number] [facility] [place] En[facility] [id number] 1[facility]12/14 [facility] [place] En[facility] [id number] 12/14 [facility] [place] En[facility] [id number] 12/29 [facility] [place] En[facility] [id number] 01/01 [facility] [place] QNHP OL DIG ASSMT&MGMT 5-10 [id number] Diagnos is: ICD-10- CM Z12.2 Encntr screen for maligna nt neoplas m of respira tory organs JANNA HAMPTON L 01/01 [facility] En[facility] [id number] 01/24 [facility] [place] En[facility] [id number] 02/02 [facility] [place] En[facility] [id number] 1.02/04 [facility] [place] En[facility] [id number] 02/04 [facility] [place] En[facility] [id number] 03/10 [facility] [place] Encounter [id number] 03/31 [facility] [place] Encounter [id number] 04/02 [facility] [place] Encounter [id number] 04/08 [facility] [place] Encounter [id number] 05/13 [facility] [place] OFF[facility] O/P EST MOD 30 MIN [id number] Diagnos is: ICD-10- CM C61 Maligna nt neoplas m of prostat e MCCLOUD,DA VID A 05/18 [place] [facility] NQHP OL DIG ASSMT&MGMT 5-10 [id number] Diagnos is: ICD-10- CM Z04.89 Encount er for examina tion and observa tion for oth reasons MILLER CRUZ 06/14 [facility] En[facility] [id number] 06/21 [facility] NQHP OL DIG ASSMT&MGMT 5-10 [id number] Diagnos is: ICD-10- CM Z04.89 Encount er for examina tion and observa tion for oth reasons MARCELINO LEWIS 07/15 [facility] Outpatient Encounter [id number] 07/28 [facility] Encounter [id number] 08/23 [facility] En[facility] [id number] 09/22 [facility] [place] En[facility] [id number] 09/27 [facility] Encounter [id number] 09/27 [facility] En[facility] [id number] 11/10 [facility] [place] Outpatient Encounter [id number] 11/16 [facility] Outpatient Encounter [id number] JULYDAMON P 11/16 [facility] Social History Combined list of available smoking, tobacco, and other social history from Department of Defense and Veterans Affairs facilities. Social History Type Response Date Comment Sourc e Tobacco smoking status [place]-TOBACCO USE EVERY DAY CIGARETTES 05/18/2024 [place] History of tobacco use WA-TOBACCO NEVER USED OTHER TYPE 05/18/2024 [place] History of tobacco use WA-TOBACCO USER EVERY DAY 10/30/2022 [place] History of tobacco use CURRENT SMOKER 03/21/2017 2 packs daily [place] History of tobacco use CURRENT SMOKER 06/28/2016 [place] History of tobacco use CURRENT SMOKER 12/28/2014 [place] History of tobacco use CURRENT SMOKER 06/21/2013 smokes one ppd of cigaretts [place] History of tobacco use V1-PT THINKING ABOUT QUIT TOBACCO USE 03/30/2012 [place] History of tobacco use CURRENT SMOKER 10/04/2011 Pt smokes a pack and a half a day. [place] Plan of Care List of future care activities from [facility] facilities. Additional future care activities may be listed in the Assessment and Plan section. Date/Time Care Activity Care Activity Detail Facili ty 12/08/2024 AMBULATORY - MEDICINE [facility]
--- OUTSIDE RECORDS SUMMARY | 2024-11-30 13:23 | XMS_ITS | Clinical Summary ---
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 Unavailable Primary Care Provider Unavailabl e Social History Tobacco Use Types Packs/Day Years Used Date Smoking Tobacco: Never Assessed Intimate Partner Violence Answer Date R ecorded Fear of Current or Ex-Partner Not on file Emotionally Abused Not on file 11/21/2022 Physically Abused Not on file 11/21/2022 Sexually Abused Not on file 11/21/2022 Feel Safe at Home Not on file 11/21/2022 Sex and Gender Information Value Date Recorded Sex Assigned at Not on file Legal Sex Male 9:46 AM EDT Gender Identity Not on file Sexual Orientation Not on file Last Filed Vital Signs Vital Sign Reading Time Taken Comments Blood Pressure 116/60 07/01/2022 4:10 PM EDT Pulse 92 07/01/2022 4:10 PM EDT Temperature - - Respiratory Rate - - Oxygen Saturation - - Inhaled Oxygen Concentration - - Weight 101 kg (223 lb) 07/01/2022 4:10 PM EDT Height 152.4 cm (5') 07/01/2022 4:10 PM EDT Body Mass Index 43.55 07/01/2022 4:10 PM EDT Plan of Treatment Health Maintenance Due Date Last Done Comments Hepatitis C Screening 1960 DTaP/Tdap/Td (1 - Tdap) 1977 Pneumococcal 50+ years (1 of 1 - PCV) 2009 Zoster (Shingrix) (1 of 2) 2009 COVID-19 Vaccine ( - 2023-2 5 season) 2024 Influenza (#1) 2024 RSV (1 - 1-dose 75+ series) 2034 Abdominal Aorta Imaging Discontinued HPV Vaccine (No Doses Required) Completed Hep A Aged Out No longer eligi ble based on patient's age to complete this topic Hep B Aged Out No longer eligi ble based on patient's age to complete this topic Hib Aged Out No longer eligi ble based on patient's age to complete this topic Meningococcal ACWY Aged Out No longer eligible based on patient's age to complete this topic Zoster (Zostavax) Discontinued
[2024-11-30 14:13] LABS: PSA,Total (Free>4and<10) 4.69 ng/mL (0.00-4.00)
[2024-12-01 13:49] LABS: Free Prostate Spec Ag 0.3 ng/mL; Percent Free Prostate Spec Ag 8 % (calc) (>25)
== END 2024-11-30 12:00 | disposition home or self-care (01) ==
LOC: HO.LAB 11:59
PROVIDERS: PCP Hospitalist; Visit Provider Urology
DX: C61 Malignant neoplasm of prostate (principal); Z12.5 Encounter for screening for malignant neoplasm of prostate
CPT/HCPCS: 36415; 84153; 84154

== ENCOUNTER → 2024-12-06 09:07 | Outpatient (BNV) | payer OTHER, SELFPAY | PROVIDERS: Visit Provider Radiology Diagnostic Radiology | DX: C61 Malignant neoplasm of prostate (principal) | CPT/HCPCS: 72197; 76377 ==

== ENCOUNTER 2024-12-06 09:15 | Outpatient (REF) | payer OTHER, SELFPAY ==
--- OUTSIDE RECORDS SUMMARY | 2023-12-15 09:30 | XMS_ITS ---
Author Organization [facility] Address [address] [place] [id number] Care Team Providers Care Marketing Research Analyst Name Role Phone MONISHA KAY M.D. Primary Care Provider Kenji Moy Unavailable [phone] REASON FOR VISIT screening, fam hx colon ca Problems Problem Type SNOMED Code ICD Code Onset Dates Problem Status W/U Status Risk Notes Problem Diverticular disease of colon (837631055) Diverticulosis of large intestine without perforation or abscess without bleeding (K57.30) Active confirmed Encounters Encounter Location Date Provider Diagnosis [facility] Outpatient [address] [place] [id number] 12/15/2023 Kenji Perez Colon cancer scree neri [...] Notes * JAZLYN FONTAINEDOB:1959 (64 yo M)Acc No.[id number]:12/15/2023 COLON WITH MAC Patient: JAZLYN ODELL Provider: Alma Rosa Perez MD :1960 A ge:63 Y S ex:Male Date:12/15/2023 Address:[address], [place], [place] Pcp:MONISHA KAY M.D. Subjective: * Chief Complaints: [...] 12/15/2023 Generated for Kristen roman/Cristopher/Anaitting on: 0 12/06/2024 10:24 AM EDT
--- NOTE | ~2024-12-06 | MR_ITS ---
EXAMINATION: MR PROSTATE WITHOUT THEN WITH IV CONTRAST, MR EXAM UNLISTED HISTORY: C61 - Malignant neoplasm of prostate TECHNIQUE: 1.5T body coil survey of the pelvis was performed. Phase array coil imaging of the prostate was performed in multiplanar high resolution axial, coronal, sagittal fast spin echo T2 and axial T1 weighted imaging sequences. Axial diffusion imaging at intermediate and high field performed with ADC mapping. Next, 10 mL Gadavist was given by intravenous infusion, and dynamic axial imaging performed. 3-D reconstructions and post-processing were performed on an independent workstation by the radiologist for biopsy planning using image fusion. COMPARISON: There are no prior studies available for comparison. CLINICAL DATA: Most recent PSA: 4.69 ng/mL on 11/30/2024. PSA Density: 0.16 ng/mL squared Prostate Biopsy: Positive biopsy on 01/16/2024 with a Jessup score 3+3 = 6. FINDINGS: Prostate size: 4.1 x 3.8 x 3.7 cm. Calculated prostate volume is 30.0 mL. Hemorrhage: None. Transitional Zone: There is mild heterogeneous nodular hypertrophy of the transitional zone. Peripheral Zone: The peripheral zone demonstrates diffusely decreased signal intensity on T2-weighted imaging. There is also diffuse decrease in signal intensity throughout the peripheral gland on ADC map. A single area of interest is noted as described below: Area of interest #1: Location: Left anterior peripheral zone in the mid gland (series 10, image 16) measuring approximately 10 mm in size. DWI PI-RADS v2.1 score: 4 T2 PI-RADS v2.1 score: 3 DCE PI-RADS v2.1 score: - Overall PI-RADS v2.1 score: 4 Capsular contact: yes Extracapsular extension: None Seminal vesicle invasion: None Neurovascular bundle involvement: Not Seminal Vesicles/Ejaculatory Ducts: Symmetric and normal in signal and caliber. Pelvic Lymph Nodes: No obturator or internal iliac lymph nodes meeting size criteria for adenopathy. Marrow Signal: Normal marrow signal and enhancement without focal lesion identified. MR/MR Prostate wo/w con IMPRESSION: Area of interest in the left anterior peripheral zone in the mid gland, suspicious for clinically significant prostate carcinoma. PI-RADS PI-RADS Assessment Categories PI-RADS 1: Very low (clinically significant cancer is highly unlikely to be present) PI-RADS 2: Low (clinically significant cancer is unlikely to be present) PI-RADS 3: Intermediate (the presence of clinically significant cancer is equivocal) PI-RADS 4: High (clinically significant cancer is likely to be present) PI-RADS 5: Very high (clinically significant cancer is highly likely to be present) [employer]. MR Prostate Imaging Reporting and Data System version 2.1. [email or web address]/Quality-Safety/[email or web address]/ Electronically signed by: Kenji Jurado MD 12/06/2024 11:17 AM EDT
--- OUTSIDE RECORDS SUMMARY | 2024-12-06 10:24 | XMS_ITS | Patient Health Record ---
Author Organization [facility] Address [address] [place] [address] Care Team Providers Care Cytotechnologist Supervisor Name Role Phone MONISHA KAY M.D. Primary Care Provider Kenji Moy Unavailable [phone] Allergies No Known Allergies Results Component Value Reference Range Notes Pathology (Not yet reviewed by provider) Interpretation: Performing Lab:[facility], [address] [place] [phone] Notes/Report: Reason For Referral No Information Medications Medication SIG (Take, Route, Frequency, Duration) Notes Start Date End Date Status Apixaban 5 MG 1 tablet Orally Twic e a day for 30 day(s) Active Pravastatin Sodium 20 MG 1 tablet Orally Once a day for 30 day(s) Active Immunizations Vaccine Route Administration Date Status Comme nts Influenza Unknown 02/18/2023 Administered Social History Tobacco Use: Social History Observation Description Date Details (start date - stop date) Current Smoker NA - NA Tobacco Use/Smoking Question Answer Notes Patient is a current smoker Alcohol Screen Question Answer Notes Did you have a drink contain ing alcohol in the past year? Yes How often did you have a dri nk containing alcohol in the past year? 2 to 4 times a month (2 points) How many drinks did you have on a typical day when you were drinking in the past year? 3 or 4 drinks (1 point) How often did you have 6 or more drinks on one occasion in the past year? Never (0 point) Points 3 Interpretation Negative Section Notes: Smokes cigarettes; no sig al cohol Problems Problem Type SNOMED Code ICD Code Onset Dates Problem Status W/U Status Risk Notes Problem Colon cancer screening (916851703) Colon cancer screening (Z12.11) Active confirmed Problem Pre-procedure evaluation check (300836709) Encounter for other preprocedural examination (Z01.818) Active confirmed Problem Diverticular disease of colon (979066633) Diverticulosis of large intestine without perforation or abscess without bleeding (K57.30) Active confirmed Problem Family history of malignant neoplasm of gastrointestinal tract (173156397) Family history of colon cancer in father (Z80.0) Active confirmed Problem History of drug therapy (648758728) Hx of intermediate use of blood thinners (Z92.29) Active confirmed Encounters Encounter Location Date Provider Diagnosis [facility] Outpatient [address] [place] [id number] 12/15/2023 Kenji Perez Colon cancer radhae neri Z12.11 ; Colon polyps K63.5 ; [...] hemorrhoids (ICD-10 - K64.8) Plan Of Treatment Pending Test Test Name Order Date Pathology 12/15/2023 Future Test Test Name Order Date COLONOSCOPY 10/01/2023 Insurance Providers Payer Name Payer Address Payer Phone Subscriber Number Group Number Insured Name Patient Relationship to Insured Coverage Start Date Coverage End Date [facility] [employer] [address] [place] [address] [id number] JAZLYN RENDON Self - patient is the insured Medical (General) History Medical History History ICD Code Afib Denies VA,DM,CVA,Lung disease,renal dise ase Hyperlipidemia Negative screening colonoscopy 12/2011 w michael Mcqueen Surgical History Surgery Date(Month/Year) Left Hip Arthroscopy
--- OUTSIDE RECORDS SUMMARY | 2024-12-06 10:25 | XMS_ITS | Clinical Summary ---
Author Organization [facility] Address [address] [place] [address] Care Team Providers Care Dethistler Operator Name Role Phone Unavailable Primary Care Provider [...]
== END 2024-12-06 09:16 | disposition home or self-care (01) ==
LOC: HO.MRI 09:15
PROVIDERS: Visit Provider Urology
DX: C61 Malignant neoplasm of prostate (principal)
CPT/HCPCS: 72197; 76377; A9585

== ENCOUNTER 2024-12-09 08:47 | Outpatient (AMB) | payer OTHER, SELFPAY ==
--- OUTSIDE RECORDS SUMMARY | 2023-12-15 09:30 | XMS_ITS ---
Author Organization [facility] Address [address] [place] [address] Care Team Providers Care Dipper Clock And Watch Hands Name Role Phone MONISHA KAY M.D. Primary Care Provider Kenji Moy Unavailable [phone] REASON FOR VISIT screening, fam hx colon ca Problems Problem Type SNOMED Code ICD Code Onset Dates Problem Status W/U Status Risk Notes Problem Diverticular disease of colon (681036126) Diverticulosis of large intestine without perforation or abscess without bleeding (K57.30) Active confirmed Encounters Encounter Location Date Provider Diagnosis [facility] Outpatient [address] [place] [phone] 12/15/2023 Kenji Perez Colon cancer scree neri Z12.11 ; Colon polyps K63.5 ; Diverticulosis of large intestine without perforation or abscess without bleeding K57.30 and Other hemorrhoids K64.8 Assessments Encounter Date Diagnosis (ICD Code) Assessment Notes Treatment Notes Treatment Clinical Notes Section Notes 12/15/2023 Colon cancer screening (ICD-10 - Z12.11) 12/15/2023 Colon polyps (ICD-10 - K63.5) 12/15/2023 Diverticulosis of large intestine without perforation or abscess without bleeding (ICD-10 - K57.30) 12/15/2023 Other hemorrhoids (ICD-10 - K64.8) Plan Of Treatment No Information Progress Notes * JAZLYN FONTAINEDOB:1959 (64 yo M)Acc No.[id number]:12/15/2023 COLON WITH MAC Patient: JAZLYN ODELL Provider: Alma Rosa Perez MD :1960 A ge:63 Y S ex:Male Date:12/15/2023 Address:[address], [id number] Pcp:MONISHA KAY M.D. Subjective: * Chief Complaints: * 1 . Screening, fam hx colon ca. * Medical History: Objective: * Vitals: Assessment: * Assessment: 1. C olon cancer screening - Z12.11 (Primary) 2 . C olon polyps - K63.5? 3. D iverticulosis of large intestine without perforation or abscess without bleeding - K57.30 4 . O ther hemorrhoids - K64.8 Plan: * Treatment: * Procedure Codes: 4 5385 LESION REMOVAL COLONOSCOPY, Modifiers: 33 * * The named appointment provid er may or may not be the originator of this progress note, and it is not deemed complete until electronically signed by the appointment provider. Sign off status: Pending * Provider: Alma Rosa Perez MD Date: 0 12/15/2023 Generated for Kristen roman/Cristopher/Anaitting on: 0 12/09/2024 09:51 AM EDT
--- NOTE | 2024-12-09 09:22 | A.OFFVIS_ITS ---
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 He is here in follow-up to review MRI results and PSA results. PSA results 11/30/2024--4.69 ng/mL. The patient is prescribed finasteride 5 mg daily. MRI results single area left anterior peripheral zone 10 mm which does correspond to prior biopsy which was done on 01/16/2024. Recommend MRI targeted prostate biopsy. History of Present Illness The patient is a 64-year-old male presenting for follow-up of prostate cancer and review of MRI and PSA results. The patient has been on active surveillance for localized prostate cancer. His PSA level was recorded at 4.69 ng/mL on November 30, 2024, which shows a decrease with the use of finasteride 5 mg daily. The MRI results indicated a single area in the left anterior peripheral zone corresponding to a prior biopsy site, with no new areas detected. Results - PSA level: 4.69 ng/mL on 11/30/2024 - MRI: Area of interest #1: Location: Left anterior peripheral zone in the mid gland (series 10, image 16) measuring approximately 10 mm in size. Plan 1. Prostate Cancer - Continue active surveillance with regular PSA monitoring. - MRI-targeted prostate biopsy recommended to confirm pathology remains low grade. - Biopsy to be performed under anesthesia using MRI guidance. - Finasteride 5 mg daily to be continued, prescription refilled for 90 days. 04/08/24--Amauri is s/p prostate bx 01/16/24 for elevated PSA, estimated prostate volume 41.6 mL. Discussed path results, low volume silvestre 3+3=6, group 1. Discussed treatment options to include active surveillance. Plan MRI, PSA in 5 months. proscar 5 mg daily for enlarge prostate. 8/28/24--FU enlarged prostate elevated PSA. Bereket did not have PSA repeated. He is scheduled to have colonoscopy December 14 and states he will be office his blood thinner prior to the colonoscopy. I have discussed scheduling the prostate biopsy days after the colonoscopy so he does not have to stop the blood thinners 2nd time for the prostate procedure. We will send antibiotics for him to start 1 day prior to prostate biopsy Cipro 500 mg twice a day and to continue for a total of 3 days. 07/31/23--Bereket is a 63-year-old male, referred for elevated PSA. AUA symptom score 2. The patient denies any issues with urination. He states his father had prostate cancer. He is unsure at what age his father was diagnosed but he states his father was treated and as far as he knows did well. His father is now . The patient is on Eliquis for atrial fibrillation. He states he has a consultation with Cardiology in September to establish care. I have reviewed labs PSA 05/16/2023--5.58 PSA 06/28/2016 3.59 Prostate exam-mild enlargement no suspicious nodules palpated. Plan will repeat PSA follow-up in October after Cardiology eval. Discussed with the patient that we would need him to stop his blood thinner if plan is for prostate biopsy. 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 Mother No problems noted. Social History Alcohol intake: current Alcohol intake frequency: holidays/special occasions only Patient Tobacco Use Status: Current everyday Tobacco user Cigarettes Per Day: 25 service: Yes ([employer], [employer] Apr 22, 1977-Dec 21, 1983) Review of Systems Const All systems reviewed & are unremarkable except as noted in HPI and below Reports no additional complaints Eyes Reports no additional complaints ENT Reports no additional complaints Card Reports no additional complaints Resp Reports no additional complaints GI Reports no additional complaints Reports as per HPI Musc Reports no additional complaints Skin/Breast Reports system reviewed and no additional complaints, except as documented Neuro Reports no additional complaints Psych Reports no additional complaints Endo Reports no additional complaints Brandon/Lymph Reports no additional complaints Aller/Immun Reports no additional complaints Results Reviewed Results Reviewed: Date of Service: 12/06/24 Reason for Exam: C61 - Malignant neoplasm of prostate EXAMINATION: MR PROSTATE WITHOUT THEN WITH IV CONTRAST, MR EXAM UNLISTED HISTORY: C61 - Malignant neoplasm of prostate TECHNIQUE: 1.5T body coil survey of the pelvis was performed. Phase array coil imaging of the prostate was performed in multiplanar high resolution axial, coronal, sagittal fast spin echo T2 and axial T1 weighted imaging sequences. Axial diffusion imaging at intermediate and high field performed with ADC mapping. Next, 10 mL Gadavist was given by intravenous infusion, and dynamic axial imaging performed. 3-D reconstructions and post-processing were performed on an independent workstation by the radiologist for biopsy planning using image fusion. COMPARISON: There are no prior studies available for comparison. CLINICAL DATA: Most recent PSA: 4.69 ng/mL on 11/30/2024. PSA Density: 0.16 ng/mL squared Prostate Biopsy: Positive biopsy on 01/16/2024 with a Silvestre score 3+3 = 6. FINDINGS: Prostate size: 4.1 x 3.8 x 3.7 cm. Calculated prostate volume is 30.0 mL. Hemorrhage: None. Transitional Zone: There is mild heterogeneous nodular hypertrophy of the transitional zone. Peripheral Zone: The peripheral zone demonstrates diffusely decreased signal intensity on T2-weighted imaging. There is also diffuse decrease in signal intensity throughout the peripheral gland on ADC map. A single area of interest is noted as described below: Area of interest #1: Location: Left anterior peripheral zone in the mid gland (series 10, image 16) measuring approximately 10 mm in size. DWI PI-RADS v2.1 score: 4 T2 PI-RADS v2.1 score: 3 DCE PI-RADS v2.1 score: - Overall PI-RADS v2.1 score: 4 Capsular contact: yes Extracapsular extension: None Seminal vesicle invasion: None Neurovascular bundle involvement: Not Seminal Vesicles/Ejaculatory Ducts: Symmetric and normal in signal and caliber. Pelvic Lymph Nodes: No obturator or internal iliac lymph nodes meeting size criteria for adenopathy. Marrow Signal: Normal marrow signal and enhancement without focal lesion identified. IMPRESSION: Area of interest in the left anterior peripheral zone in the mid gland, suspicious for clinically significant prostate carcinoma. PI-RADS PI-RADS Assessment Categories PI-RADS 1: Very low (clinically significant cancer is highly unlikely to be present) PI-RADS 2: Low (clinically significant cancer is unlikely to be present) PI-RADS 3: Intermediate (the presence of clinically significant cancer is equivocal) PI-RADS 4: High (clinically significant cancer is likely to be present) PI-RADS 5: Very high (clinically significant cancer is highly likely to be present) Collected: 01/16/24 Location: [facility] Received: 01/16/24 Diagnosis Prostate, needle core biopsies: A. Left base lateral: Benign prostatic tissue. B. Left base medial: Benign prostatic tissue. C. Left mid lateral: Benign prostatic tissue. D. Left mid medial: Few atypical glands. E. Left apex lateral: Prostatic adenocarcinoma, Silvestre score 6 (3+3), grade group 1, 0.65 mm, 5% of core. F. Left apex medial: Benign prostatic tissue. G. Right base lateral: Benign prostatic tissue. H. Right base medial: Benign prostatic tissue. I. Right mid lateral: Benign prostatic tissue. J. Right mid medial: Benign prostatic tissue. K. Right apex lateral: Rare atypical glands, cannot exclude adenocarcinoma. L. Right apex medial: Stroma only. Comment: Scattered foci of acute and chronic inflammation are noted throughout. Data synopsis - Prostate needle biopsy Histologic type: Adenocarcinoma, acinar type Histologic grade: [place] score: 6 (3+3) (left apex lateral) % of pattern 4: 0% % of pattern 5: 0% Grade group: 1 Tumor quantitation: Assessment & Plan Assessment & Plan (1) Adenocarcinoma of prostate: Code(s): C61 - Malignant neoplasm of prostate Category: Medical (2) Elevated PSA: Code(s): R97.20 - Elevated prostate specific antigen [PSA] Category: Medical Plan MRI targeted prostate biopsy. Cont finestaride Medications: Refilled finasteride 5 mg PO DAILY 90 tabs 3RF 30 days Discontinued levofloxacin Discontinued Reason: Patient Completed Course 500 mg PO Q24H 3 days 3 tabs 0RF post procedure prostate biopsy Patient Instructions: The patient had an opportunity to ask questions regarding treatment plan. The patient expressed understanding and agreement with the above treatment plan. The patient is aware they should contact our office by phone for worsening of their current condition or the appearance of new symptoms. Compliance is encouraged with any medications and followup testing that is ordered. It is a privilege to be allowed the opportunity to participate in the urologic care of your patient. If you have any questions or concerns regarding treatment for the above conditions please do not hesitate to contact me. The office telephone contact is [phone]. This note is constructed in part using voice recognition software. While every effort has been made to ensure accuracy report specialist errors may have been included. Yours sincerely, Jen Torres MD Scribe Plan - Not visible on output: Patient was informed and verbally consented to the use of an ambient scribe for clinic note documentation during this visit. Coding Level of Care Code Est Pt Level 4 (37765) Complex EM visit Add On G2211 Diagnoses Adenocarcinoma of prostate C61 Elevated PSA R97.20
--- OUTSIDE RECORDS SUMMARY | 2024-12-09 09:52 | XMS_ITS | Patient Health Record ---
Author Organization [facility] Address [address] [place] [address] Care Team Providers Care Santa'S Helper Name Role Phone MONISHA KAY M.D. Primary Care Provider Kenji Moy Unavailable [phone] Allergies No Known Allergies Results Component Value Reference Range Notes Pathology (Not yet reviewed by provider) Interpretation: Performing Lab:[facility], [address] [place] [id number] Notes/Report: Reason For Referral No Information Medications [...] Status Risk Notes Problem Colon cancer screening (055004290) Colon cancer screening (Z12.11) Active confirmed Problem Pre-procedure evaluation check (380975674) Encounter for other preprocedural examination (Z01.818) Active confirmed Problem Diverticular disease of colon (230734968) Diverticulosis of large intestine without perforation or abscess without bleeding (K57.30) Active confirmed Problem Family history of malignant neoplasm of gastrointestinal tract (880028632) Family history of colon cancer in father (Z80.0) Active confirmed Problem History of drug therapy (361568560) 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 [place] [address] [id number] JAZLYN RENDON Self - patient is the insured Medical (General) History Medical History History ICD Code Afib Denies [place],DM,CVA,Lung disease,renal dise ase Hyperlipidemia Negative screening colonoscopy 12/2011 w michael Mcqueen Surgical History Surgery Date(Month/Year) Left Hip Arthroscopy
--- OUTSIDE RECORDS SUMMARY | 2024-12-09 09:52 | XMS_ITS | Clinical Summary ---
Author Organization [facility] Address [address] [place] [address] Care Team Providers Care Grinding Operator Name Role Phone Unavailable Primary Care [...]
== END 2024-12-09 09:50 | disposition home or self-care (01) ==
LOC: HO.HUSH 08:47
PROVIDERS: Visit Provider Urology
DX: C61 Malignant neoplasm of prostate (principal); R97.20 Elevated prostate specific antigen [PSA]
CPT/HCPCS: 99214; G2211

== ENCOUNTER → 2024-12-09 08:47 | Outpatient (BNVA) | payer OTHER, SELFPAY | PROVIDERS: Visit Provider Urology | DX: C61 Malignant neoplasm of prostate (principal); R97.20 Elevated prostate specific antigen [PSA]; N40.0 Benign prostatic hyperplasia without lower urinary tract symptoms | CPT/HCPCS: 51798; 99212 ==